=== PATIENT | male | born 1985 | race Caucasian/White ===

== ENCOUNTER 2020-09-11 20:24 | Emergency (ER) | payer OTHER, SELFPAY ==
[2020-09-11 20:37] VITALS: BP 131/77; PULSE 99; RESP 18; TEMP 36.7; O2SAT 96
--- NOTE | 2020-09-11 21:33 | PC.NURSE ---
Patient talknig on the phone with a friend.
[2020-09-11 21:39] LABS: Add Manual Diff / Slide Review NO; Basophils Absolute Auto 100 /uL (0-100); Basophils Percent Auto 1.1 % (0-2); Eosinophils Absolute Auto 100 /uL (0-450); Eosinophils Percent Auto 1.3 % (2-4); Hematocrit 47.7 % (41-53); Hemoglobin 16.1 g/dL (13.5-17.5); Lymphocytes Absolute Auto 2800 /uL (1100-4500); Lymphocytes Percent Auto 42.9 % (25-40); Mean Corpuscular HGB Conc 33.7 % (30-36); Mean Corpuscular Hemoglobin 32.3 PG (26-34); Mean Corpuscular Volume 95.9 fL (80-100); Monocytes Absolute Auto 300 /uL (0-900); Monocytes Percent Auto 5.3 % (3-14); Neutrophils Absolute Auto 3200 /uL (1500-7000); Neutrophils Percent Auto 49.4 % (50-75); Platelet Count 295 X10^3/uL (150-400); Red Blood Cell Count 4.98 X10^6/uL (4.5-5.9); Red Cell Distribution Width 14.2 % (11.6-14.8); White Blood Cell Count 6.5 X10^3/uL (4.5-11.0)
[2020-09-11 22:10] LABS: Acetaminophen < 10 ug/mL (10-30); Alanine Aminotransferase 108 IU/L (<50); Albumin 4.1 g/dL (3.5-5.0); Albumin Globulin Ratio 1.4 (1.0-2.8); Alkaline Phosphatase 82 U/L (38-126); Aspartate Aminotransferase 54 IU/L (17-59); BUN Creatinine Ratio 11.9 (6-22); Bilirubin Total 0.4 mg/dL (0.2-1.3); Blood Urea Nitrogen 12 mg/dL (9-20); Calcium 8.9 mg/dL (8.4-10.2); Carbon Dioxide 23 mmol/L (22-32); Chloride 108 mmol/L (98-107); Estimated Glomerular Filt Rate > 60.0 mL/min (>60); Ethanol (ETOH) 265 mg/dL; Glucose 144 mg/dL (70-100); HEMOLYSIS 41 (0-50); Potassium 4.2 mmol/L (3.4-5.1); Salicylate < 1.0 mg/dL (<20); Sodium 143 mmol/L (137-145); Total Protein 7.1 g/dL (6.3-8.2)
[2020-09-11 22:30] LABS: COVID19 -Nasal RAPID Negative (Negative)
--- NOTE | 2020-09-11 22:30 | PC.NURSE ---
Pt sitting and eating food. Is calm, cooperative. Pt staes he has no plan and after his DUI a couple days ago was having egative thoughts regarding his mistake. Pt states he may have said things he didn't mean.
[2020-09-11 22:39] LABS: Free T4, Direct Thyroxine 0.82 ng/dL (0.78-2.19)
[2020-09-11 22:46] LABS: Ur Creatinine 20 (Normal); Ur Specific Gravity 1.025 (Normal); Urine pH 5 (Normal)
[2020-09-11 22:47] LABS: UR Morphine/Opiate cutoff 300 Negative (Negative); Urine Amphetamines Negative (Negative); Urine Barbiturates Negative (Negative); Urine Benzodiazepines Negative (Negative); Urine Cocaine Negative (Negative); Urine MDMA Negative (Negative); Urine Methadone Negative (Negative); Urine Methamphetamines Negative (Negative); Urine Oxycodone Negative (Negative); Urine Phencyclidine Negative (Negative); Urine Tetrahydrocannabinol Negative (Negative); Urine Tricyclic Antidepressant Negative (Negative)
--- NOTE | 2020-09-11 22:52 | PC.NURSE ---
Patient calmly speaking with a friend on the phone. Seems to be positive conversation.
[2020-09-11 22:53] LABS: Thyroid Stimulating Hormone 1.29 uIU/mL (0.47-4.68)
--- NOTE | 2020-09-11 23:21 | PC.NURSE ---
CONSTRUCTION ASSISTANT note: patient stood up and wandered the space. Asked him what was going on. Suggested to patient maybe to not walk around the ER barefoot. Got him grippy socks. Asked what the plan was. Explained to him that doctor is with other patients, and he will be in as soon as he can be. I suggested playing candy crush or something on his phone while he waits. He told me he plays the [employer] crossword puzzle. Suggested he play that for the time being. Patient back in the bed, on the phone. Watching patient while he talks on phone.
--- NOTE | 2020-09-11 23:58 | PC.NURSE ---
FISHER note: patient is up pacing the room. Wants to know what's going on. I thought this would be more therapeutic. Explained to patient the ER is a busy place, said the best thing is try to get some rest. Offered a snack or drink. Patient refused. Patient watched as other room across the lugo was having a moment. Patient paced the room. Asked for a blanket. Got patient a blanket. Patient laid down for a minute, got up asked for something to sedate him. Tiago MELO and I had a conversation w/ patient. Offered chamomile tea or warm milk. Tiago talked to RN saying patient is requesting a medication. Patient is now in bed resting. One rail is up in bed.
--- NOTE | 2020-09-12 00:07 | ED.PSYCH ---
HPI - Psych <Matthwe Sutton DO - Last Filed: 09/12/20 17:55> General Chief Complaint: Psychiatric Symptoms Stated Complaint: mental health eval Time Seen by Provider: 09/11/20 21:15 Source: patient and family Mode of arrival: Ambulatory History of Present Illness HPI Narrative: Patient is a 35-year-old male who is brought in by family members for evaluation because of alcohol issues and also depression and reported suicidal ideation. The patient is somewhat reluctant to provide any information to myself. It was reported that when he arrived in triage she did not want to stay but was eventually convinced to stay by his family. He was reported that he recently was charged with a DUI. He has had alcohol issues in the past. He is currently intoxicated. Triage nurse states that the patient could not/would not contract for safety stating that if he were to leave he was going to hurt himself. Patient would not provide any specifics to myself regarding this. He does have a history of bipolar type 2. Also has a history of depression. Has been on medications in the past but does not take any medications currently. He has been admitted to the hospital in the past for suicidal ideation. Related Data Allergies Allergy/AdvReac Type Severity Reaction Status Date / Time No Known Drug Allergies Allergy Verified 09/12/20 07:47 Review of Systems <Matthew Sutton DO - Last Filed: 09/12/20 17:55> Constitutional Constitutional: Reports system reviewed and no additional complaints, except as documented Cardiovascular Cardiovascular: Reports system reviewed and no additional complaints, except as documented Respiratory Respiratory: Reports system reviewed and no additional complaints, except as documented Gastrointestinal Gastrointestinal: Reports system reviewed and no additional complaints, except as documented Musculoskeletal Musculoskeletal: Reports system reviewed and no additional complaints, except as documented Psychiatric Psychiatric: Reports as per HPI Hematologic/Lymphatic On Anticoagulants: No Patient History <Matthew Sutton DO - Last Filed: 09/12/20 17:55> Medical History Alcohol abuse Bipolar 2 disorder Social History lives independently: Yes Exam <Matthew Sutton DO - Last Filed: 09/12/20 17:55> Initial Vital Signs Initial Vital Signs: Vital Signs Temperature 98.1 F 09/11/20 20:37 Pulse Rate 99 H 09/11/20 20:37 Respiratory Rate 18 09/11/20 20:37 Blood Pressure 131/77 09/11/20 20:37 Pulse Oximetry 96 09/11/20 20:37 Const General: comfortable HENMT Head: normal to inspection and normocephalic Eyes General: appearance normal, both eyes and all related structures Resp Effort & Inspection: normal respiratory effort Cardio Rate: regular rate Skin General: no rashes or lesions noted Neuro General: patient alert, patient awake, patient oriented x3 and moves all extremities Extrem General: normal to inspection and capillary refill normal Psych Appearance: grossly normal and well kempt Mental Status: mental status grossly normal Speech and Movement: speech and movement normal and restless Mood: labile mood and angry Affect: sad and blunted Attitude: refuses to answer Judgment: poor <To Downey DO - Last Filed: 09/12/20 18:08> Initial Vital Signs Initial Vital Signs: Vital Signs Temperature 98.1 F 09/11/20 20:37 Pulse Rate 99 H 09/11/20 20:37 Respiratory Rate 18 09/11/20 20:37 Blood Pressure 131/77 09/11/20 20:37 Pulse Oximetry 96 09/11/20 20:37 Course <Matthew Sutton DO - Last Filed: 09/12/20 17:55> Orders Ordered: Discontinued Medications Diphenhydramine HCl (Diphenhydramine 25 Mg Tablet) 25 mg PO NOW ONE Stop: 09/12/20 00:43 Last Admin: 09/12/20 00:51 Dose: 25 mg Documented by: ROCKY Lorazepam (Lorazepam 0.5 Mg Tablet) 1 mg PO NOW ONE Stop: 09/12/20 02:02 Last Admin: 09/12/20 02:07 Dose: 1 mg Documented by: ROCKY Lorazepam (Lorazepam 0.5 Mg Tablet) 1 mg PO NOW ONE Stop: 09/12/20 07:43 Last Admin: 09/12/20 07:50 Dose: 1 mg Documented by: YOLANDA Vital Signs Vital signs: Vital Signs - 8 hr 09/12/20 01:50 09/12/20 05:54 Temperature 98.7 F 99.0 F Pulse Rate 90 75 Respiratory Rate 16 18 Blood Pressure 140/86 116/59 L Pulse Oximetry 97 97 <To Downey DO - Last Filed: 09/12/20 18:08> Course Additional Information: Patient received in sign-out from Dr. Sutton. I have performed an independent history and physical exam. The patient is clinically sober and is able to demonstrate capacity to make his own decisions. He is alert and orient, denies any ongoing suicidal or homicidal ideations. He is speaking clearly and can not ambulate with a steady gait. He states he is no longer feeling like it did when he came in and would prefer not to wait on our geriatric social work professor. I gave him multiple options, he understands that we are ready and willing to help get him tied in with support services. He would prefer to leave and is calling his mother for a ride Orders Ordered: Discontinued Medications Diphenhydramine HCl (Diphenhydramine 25 Mg Tablet) 25 mg PO NOW ONE Stop: 09/12/20 00:43 Last Admin: 09/12/20 00:51 Dose: 25 mg Documented by: ROCKY Lorazepam (Lorazepam 0.5 Mg Tablet) 1 mg PO NOW ONE Stop: 09/12/20 02:02 Last Admin: 09/12/20 02:07 Dose: 1 mg Documented by: ROCKY Lorazepam (Lorazepam 0.5 Mg Tablet) 1 mg PO NOW ONE Stop: 09/12/20 07:43 Last Admin: 09/12/20 07:50 Dose: 1 mg Documented by: YOLANDA Vital Signs Vital signs: Vital Signs - 8 hr 09/12/20 01:50 09/12/20 05:54 Temperature 98.7 F 99.0 F Pulse Rate 90 75 Respiratory Rate 16 18 Blood Pressure 140/86 116/59 L Pulse Oximetry 97 97 MDM - Psych <Matthew Sutton DO - Last Filed: 09/12/20 17:55> Lab Data Attestation: I reviewed the patient's lab results. Result diagrams: 09/11/20 21:30 09/11/20 21:30 Labs: Lab Results 09/11/20 09/11/20 09/11/20 Range/Units 21:30 21:30 21:30 WBC 6.5 (4.5-11.0) X10^3/uL RBC 4.98 (4.5-5.9) X10^6/uL Hgb 16.1 (13.5-17.5) g/dL Hct 47.7 (41-53) % MCV 95.9 (80-100) fL MCH 32.3 (26-34) PG MCHC 33.7 (30-36) % RDW 14.2 (11.6-14.8) % Plt Count 295 (150-400) X10^3/uL Neut % (Auto) 49.4 L (50-75) % Lymph % (Auto) 42.9 H (25-40) % [place] % (Auto) 5.3 (3-14) % Eos % (Auto) 1.3 L (2-4) % Baso % (Auto) 1.1 (0-2) % Neut # (Auto) 3200 (4690-5975) /uL Lymph # (Auto) 2800 (2961-1577) /uL [place] # (Auto) 300 (0-900) /uL Eos # (Auto) 100 (0-450) /uL Baso # (Auto) 100 (0-100) /uL Sodium 143 (137-145) mmol/L Potassium 4.2 (3.4-5.1) mmol/L Chloride 108 H (98-107) mmol/L Carbon Dioxide 23 (22-32) mmol/L BUN 12 (9-20) mg/dL Creatinine 1.01 (0.66-1.25) mg/dL Estimated GFR > 60.0 (>60) mL/min BUN/Creatinine Ratio 11.9 (6-22) Glucose 144 H (70-100) mg/dL Calcium 8.9 (8.4-10.2) mg/dL Total Bilirubin 0.4 (0.2-1.3) mg/dL AST 54 (17-59) IU/L ALT 108 H (<50) IU/L Alkaline Phosphatase 82 (38-126) U/L Total Protein 7.1 (6.3-8.2) g/dL Albumin 4.1 (3.5-5.0) g/dL Globulin 3.0 (1.7-4.1) g/dL Albumin/Globulin Ratio 1.4 (1.0-2.8) TSH 1.29 (0.47-4.68) uIU/mL Free T4 0.82 (0.78-2.19) ng/dL Salicylates < 1.0 (<20) mg/dL U Opiates 300ng/mL cut (Negative) Ur Oxycodone Screen (Negative) Urine Methadone Screen (Negative) Acetaminophen < 10 L (10-30) ug/mL Ur Barbiturates Screen (Negative) U Tricyclic Antidepress (Negative) Ur Phencyclidine Scrn (Negative) Ur Amphetamines Screen (Negative) U Methamphetamines Scrn (Negative) Ur MDMA Scrn (Ecstasy) (Negative) U Benzodiazepines Scrn (Negative) Urine Cocaine Screen (Negative) U Marijuana (THC) Screen (Negative) Ethyl Alcohol 265 H ( - 10) mg/dL SARS-CoV-2 (PCR) (Negative) 09/11/20 09/11/20 09/12/20 Range/Units 22:10 22:35 05:50 WBC (4.5-11.0) X10^3/uL RBC (4.5-5.9) X10^6/uL Hgb (13.5-17.5) g/dL Hct (41-53) % MCV (80-100) fL MCH (26-34) PG MCHC (30-36) % RDW (11.6-14.8) % Plt Count (150-400) X10^3/uL Neut % (Auto) (50-75) % Lymph % (Auto) (25-40) % [place]duff[place] % (Auto) (3-14) % Eos % (Auto) (2-4) % Baso % (Auto) (0-2) % Neut # (Auto) (0498-3387) /uL Lymph # (Auto) (8238-3119) /uL [place] # (Auto) (0-900) /uL Eos # (Auto) (0-450) /uL Baso # (Auto) (0-100) /uL Sodium (137-145) mmol/L Potassium (3.4-5.1) mmol/L Chloride (98-107) mmol/L Carbon Dioxide (22-32) mmol/L BUN (9-20) mg/dL Creatinine (0.66-1.25) mg/dL Estimated GFR (>60) mL/min BUN/Creatinine Ratio (6-22) Glucose (70-100) mg/dL Calcium (8.4-10.2) mg/dL Total Bilirubin (0.2-1.3) mg/dL AST (17-59) IU/L ALT (<50) IU/L Alkaline Phosphatase (38-126) U/L Total Protein (6.3-8.2) g/dL Albumin (3.5-5.0) g/dL Globulin (1.7-4.1) g/dL Albumin/Globulin Ratio (1.0-2.8) TSH (0.47-4.68) uIU/mL Free T4 (0.78-2.19) ng/dL Salicylates (<20) mg/dL U Opiates 300ng/mL cut Negative (Negative) Ur Oxycodone Screen Negative (Negative) Urine Methadone Screen Negative (Negative) Acetaminophen (10-30) ug/mL Ur Barbiturates Screen Negative (Negative) U Tricyclic Antidepress Negative (Negative) Ur Phencyclidine Scrn Negative (Negative) Ur Amphetamines Screen Negative (Negative) U Methamphetamines Scrn Negative (Negative) Ur MDMA Scrn (Ecstasy) Negative (Negative) U Benzodiazepines Scrn Negative (Negative) Urine Cocaine Screen Negative (Negative) U Marijuana (THC) Screen Negative (Negative) Ethyl Alcohol 92 H ( - 10) mg/dL SARS-CoV-2 (PCR) Negative (Negative) 09/12/20 Range/Units 08:10 WBC (4.5-11.0) X10^3/uL RBC (4.5-5.9) X10^6/uL Hgb (13.5-17.5) g/dL Hct (41-53) % MCV (80-100) fL MCH (26-34) PG MCHC (30-36) % RDW (11.6-14.8) % Plt Count (150-400) X10^3/uL Neut % (Auto) (50-75) % Lymph % (Auto) (25-40) % [place] % (Auto) (3-14) % Eos % (Auto) (2-4) % Baso % (Auto) (0-2) % Neut # (Auto) (1746-7832) /uL Lymph # (Auto) (3336-1718) /uL [place] # (Auto) (0-900) /uL Eos # (Auto) (0-450) /uL Baso # (Auto) (0-100) /uL Sodium (137-145) mmol/L Potassium (3.4-5.1) mmol/L Chloride (98-107) mmol/L Carbon Dioxide (22-32) mmol/L BUN (9-20) mg/dL Creatinine (0.66-1.25) mg/dL Estimated GFR (>60) mL/min BUN/Creatinine Ratio (6-22) Glucose (70-100) mg/dL Calcium (8.4-10.2) mg/dL Total Bilirubin (0.2-1.3) mg/dL AST (17-59) IU/L ALT (<50) IU/L Alkaline Phosphatase (38-126) U/L Total Protein (6.3-8.2) g/dL Albumin (3.5-5.0) g/dL Globulin (1.7-4.1) g/dL Albumin/Globulin Ratio (1.0-2.8) TSH (0.47-4.68) uIU/mL Free T4 (0.78-2.19) ng/dL Salicylates (<20) mg/dL U Opiates 300ng/mL cut (Negative) Ur Oxycodone Screen (Negative) Urine Methadone Screen (Negative) Acetaminophen (10-30) ug/mL Ur Barbiturates Screen (Negative) U Tricyclic Antidepress (Negative) Ur Phencyclidine Scrn (Negative) Ur Amphetamines Screen (Negative) U Methamphetamines Scrn (Negative) Ur MDMA Scrn (Ecstasy) (Negative) U Benzodiazepines Scrn (Negative) Urine Cocaine Screen (Negative) U Marijuana (THC) Screen (Negative) Ethyl Alcohol 57 H ( - 10) mg/dL SARS-CoV-2 (PCR) (Negative) Urine Dip Bedside Urine Glucose Negative Bedside Urine Bilirubin - Negative Bedside Urine Ketone - Negative Urine Specific [place] 1.025 Bedside Urine Occult Blood - Negative Bedside Urine pH 6.0 Bedside Urine Protein - Negative Bedside Urine Urobilinogen +/- 1mg Bedside Urine Nitrite - Negative Bedside Urine Leukocytes - Negative Esterase MDM Narrative Medical decision making narrative: Patient is very reluctant to provide any information to myself however has made comments to nursing staff that if he were to leave that he would hurt himself. He was intoxicated upon arrival. Was given Ativan for some anxiety issues. There is no other indication of any withdrawal symptoms. Rest of his labs unremarkable. Repeat alcohol shows that he is still above legal limit. Social work consult was placed. Care turned over to day provider to follow up and disposition. <To Downey DO - Last Filed: 09/12/20 18:08> Lab Data Labs: Lab Results 09/11/20 09/11/20 09/11/20 Range/Units 21:30 21:30 21:30 WBC 6.5 (4.5-11.0) X10^3/uL RBC 4.98 (4.5-5.9) X10^6/uL Hgb 16.1 (13.5-17.5) g/dL Hct 47.7 (41-53) % MCV 95.9 (80-100) fL MCH 32.3 (26-34) PG MCHC 33.7 (30-36) % RDW 14.2 (11.6-14.8) % Plt Count 295 (150-400) X10^3/uL Neut % (Auto) 49.4 L (50-75) % Lymph % (Auto) 42.9 H (25-40) % [place] % (Auto) 5.3 (3-14) % Eos % (Auto) 1.3 L (2-4) % Baso % (Auto) 1.1 (0-2) % Neut # (Auto) 3200 (7527-8540) /uL Lymph # (Auto) 2800 (7882-8425) /uL [place] # (Auto) 300 (0-900) /uL Eos # (Auto) 100 (0-450) /uL Baso # (Auto) 100 (0-100) /uL Sodium 143 (137-145) mmol/L Potassium 4.2 (3.4-5.1) mmol/L Chloride 108 H (98-107) mmol/L Carbon Dioxide 23 (22-32) mmol/L BUN 12 (9-20) mg/dL Creatinine 1.01 (0.66-1.25) mg/dL Estimated GFR > 60.0 (>60) mL/min BUN/Creatinine Ratio 11.9 (6-22) Glucose 144 H (70-100) mg/dL Calcium 8.9 (8.4-10.2) mg/dL Total Bilirubin 0.4 (0.2-1.3) mg/dL AST 54 (17-59) IU/L ALT 108 H (<50) IU/L Alkaline Phosphatase 82 (38-126) U/L Total Protein 7.1 (6.3-8.2) g/dL Albumin 4.1 (3.5-5.0) g/dL Globulin 3.0 (1.7-4.1) g/dL Albumin/Globulin Ratio 1.4 (1.0-2.8) TSH 1.29 (0.47-4.68) uIU/mL Free T4 0.82 (0.78-2.19) ng/dL Salicylates < 1.0 (<20) mg/dL U Opiates 300ng/mL cut (Negative) Ur Oxycodone Screen (Negative) Urine Methadone Screen (Negative) Acetaminophen < 10 L (10-30) ug/mL Ur Barbiturates Screen (Negative) U Tricyclic Antidepress (Negative) Ur Phencyclidine Scrn (Negative) Ur Amphetamines Screen (Negative) U Methamphetamines Scrn (Negative) Ur MDMA Scrn (Ecstasy) (Negative) U Benzodiazepines Scrn (Negative) Urine Cocaine Screen (Negative) U Marijuana (THC) Screen (Negative) Ethyl Alcohol 265 H ( - 10) mg/dL SARS-CoV-2 (PCR) (Negative) 09/11/20 09/11/20 09/12/20 Range/Units 22:10 22:35 05:50 WBC (4.5-11.0) X10^3/uL RBC (4.5-5.9) X10^6/uL Hgb (13.5-17.5) g/dL Hct (41-53) % MCV (80-100) fL MCH (26-34) PG MCHC (30-36) % RDW (11.6-14.8) % Plt Count (150-400) X10^3/uL Neut % (Auto) (50-75) % Lymph % (Auto) (25-40) % [place] % (Auto) (3-14) % Eos % (Auto) (2-4) % Baso % (Auto) (0-2) % Neut # (Auto) (8183-0909) /uL Lymph # (Auto) (1213-6364) /uL [place] # (Auto) (0-900) /uL Eos # (Auto) (0-450) /uL Baso # (Auto) (0-100) /uL Sodium (137-145) mmol/L Potassium (3.4-5.1) mmol/L Chloride (98-107) mmol/L Carbon Dioxide (22-32) mmol/L BUN (9-20) mg/dL Creatinine (0.66-1.25) mg/dL Estimated GFR (>60) mL/min BUN/Creatinine Ratio (6-22) Glucose (70-100) mg/dL Calcium (8.4-10.2) mg/dL Total Bilirubin (0.2-1.3) mg/dL AST (17-59) IU/L ALT (<50) IU/L Alkaline Phosphatase (38-126) U/L Total Protein (6.3-8.2) g/dL Albumin (3.5-5.0) g/dL Globulin (1.7-4.1) g/dL Albumin/Globulin Ratio (1.0-2.8) TSH (0.47-4.68) uIU/mL Free T4 (0.78-2.19) ng/dL Salicylates (<20) mg/dL U Opiates 300ng/mL cut Negative (Negative) Ur Oxycodone Screen Negative (Negative) Urine Methadone Screen Negative (Negative) Acetaminophen (10-30) ug/mL Ur Barbiturates Screen Negative (Negative) U Tricyclic Antidepress Negative (Negative) Ur Phencyclidine Scrn Negative (Negative) Ur Amphetamines Screen Negative (Negative) U Methamphetamines Scrn Negative (Negative) Ur MDMA Scrn (Ecstasy) Negative (Negative) U Benzodiazepines Scrn Negative (Negative) Urine Cocaine Screen Negative (Negative) U Marijuana (THC) Screen Negative (Negative) Ethyl Alcohol 92 H ( - 10) mg/dL SARS-CoV-2 (PCR) Negative (Negative) 09/12/20 Range/Units 08:10 WBC (4.5-11.0) X10^3/uL RBC (4.5-5.9) X10^6/uL Hgb (13.5-17.5) g/dL Hct (41-53) % MCV (80-100) fL MCH (26-34) PG MCHC (30-36) % RDW (11.6-14.8) % Plt Count (150-400) X10^3/uL Neut % (Auto) (50-75) % Lymph % (Auto) (25-40) % [place] % (Auto) (3-14) % Eos % (Auto) (2-4) % Baso % (Auto) (0-2) % Neut # (Auto) (3509-0490) /uL Lymph # (Auto) (2315-6743) /uL [place] # (Auto) (0-900) /uL Eos # (Auto) (0-450) /uL Baso # (Auto) (0-100) /uL Sodium (137-145) mmol/L Potassium (3.4-5.1) mmol/L Chloride (98-107) mmol/L Carbon Dioxide (22-32) mmol/L BUN (9-20) mg/dL Creatinine (0.66-1.25) mg/dL Estimated GFR (>60) mL/min BUN/Creatinine Ratio (6-22) Glucose (70-100) mg/dL Calcium (8.4-10.2) mg/dL Total Bilirubin (0.2-1.3) mg/dL AST (17-59) IU/L ALT (<50) IU/L Alkaline Phosphatase (38-126) U/L Total Protein (6.3-8.2) g/dL Albumin (3.5-5.0) g/dL Globulin (1.7-4.1) g/dL Albumin/Globulin Ratio (1.0-2.8) TSH (0.47-4.68) uIU/mL Free T4 (0.78-2.19) ng/dL Salicylates (<20) mg/dL U Opiates 300ng/mL cut (Negative) Ur Oxycodone Screen (Negative) Urine Methadone Screen (Negative) Acetaminophen (10-30) ug/mL Ur Barbiturates Screen (Negative) U Tricyclic Antidepress (Negative) Ur Phencyclidine Scrn (Negative) Ur Amphetamines Screen (Negative) U Methamphetamines Scrn (Negative) Ur MDMA Scrn (Ecstasy) (Negative) U Benzodiazepines Scrn (Negative) Urine Cocaine Screen (Negative) U Marijuana (THC) Screen (Negative) Ethyl Alcohol 57 H ( - 10) mg/dL SARS-CoV-2 (PCR) (Negative) Urine Dip Bedside Urine Glucose Negative Bedside Urine Bilirubin - Negative Bedside Urine Ketone - Negative Urine Specific [place] 1.025 Bedside Urine Occult Blood - Negative Bedside Urine pH 6.0 Bedside Urine Protein - Negative Bedside Urine Urobilinogen +/- 1mg Bedside Urine Nitrite - Negative Bedside Urine Leukocytes - Negative Esterase Discharge Plan Departure Patient Disposition: Home Clinical Impression: Alcohol abuse, Feeling suicidal Depression Qualifiers: Depression Type: unspecified Qualified Code(s): F32.9 - Major depressive disorder, single episode, unspecified Instructions: DI for Suicidal Ideation-Adult Activity Restrictions/Additional Instructions: *You have been diagnosed with [alcohol abuse, depression and suicidal ideation] *What to do: *Please continue to take your regular medications as directed. *Please follow up with your primary care provider as soon as possible, call for an appointment. Let them know you were seen in the Emergency Department and that we ask that you be seen in follow up. We will electronically transmit a record of today's note if your PCP is in our system *If you do not have a primary care provider please contact the [facility] Resource line at [phone]. They will ask some questions about your medical history and help get you set up with a doctor in the community. *Return to Emergency Department if you should have any new, worsening or concerning symptoms, such as [fever greater than 101 F, shaking chills, worsening pain, persistent vomiting or other bothersome symptoms] *If you feel that you are entering into mental health crisis you have multiple options 1. Return to the ER immediately 2. Call the Crisis Line at [phone] 3. Send an anonymous text by sending the word [place] to [phone] 4. Navigate your web browser to [facility] to engage in anonymous chat with a mental health worker Referrals: [facility] Resources [Outside]
--- NOTE | 2020-09-12 00:33 | PC.NURSE ---
STONER HAND note: patient changed out of street clothes and put in paper scrubs. Patient's belongings in bag in cupboard.
[2020-09-12] MEDS: diphenhydrAMINE 25 MG TABLET PO (00:51)
--- NOTE | 2020-09-12 01:37 | PC.NURSE ---
WEB SERVICES PROFESSIONAL note: patient is pacing saying the medication that was given to him isn't helping him sleep. He'd like something else. Patient is pacing around the room while sipping ice water.
[2020-09-12 01:50] VITALS: BP 140/86; PULSE 90; RESP 16; TEMP 37.1; O2SAT 97
--- NOTE | 2020-09-12 02:01 | PC.NURSE ---
Addendum entered by Sandy Basurto CNA 09/12/20 02:40: KAMERON note: patient very unsure of what he should be doing. Expressing that he is very panicking. Patient was pacing the room and said this isn't very therapeutic and I just need to sleep, but my mind keeps racing. I listened to him as he explained what he was feeling. I told him right now the best thing for you to do is sleep. I offered him tea and warm milk. Patient refused both. Patient paced for a bit longer and is now in bed laying on his belly. Original Note: KAMERON note: patient came out of room. Asked what was going on. Patient said he's feeling very panicked. I asked what about. Everything. I fucked up my whole life. I told DEONDRE Kaur. Patient is pacing in room.
[2020-09-12] MEDS: LORazepam 0.5 MG TABLET 1 MG PO ×2 (02:07→07:50)
--- NOTE | 2020-09-12 02:44 | PC.NURSE ---
He was given food and drink one hour ago.
[2020-09-12 05:54] VITALS: BP 116/59; PULSE 75; RESP 18; TEMP 37.2; O2SAT 97
[2020-09-12 06:07] LABS: Ethanol (ETOH) 92 mg/dL
[2020-09-12 08:37] LABS: Ethanol (ETOH) 57 mg/dL
--- NOTE | 2020-09-12 08:44 | PC.NURSE ---
pt is pacing around the room while playing on his phone, pt refused his meal. Pt keep asking when his going to get out, also stating that his panicking. Report to the nurse
[2020-09-12 09:51] VITALS: BP 122/89; PULSE 88; RESP 21; TEMP 37; O2SAT 99
== END 2020-09-12 10:01 | disposition home or self-care (01) ==
PROVIDERS: Emergency Medicine; Emergency Provider Emergency Medicine
DX: F10.129 Alcohol abuse with intoxication, unspecified (principal); R45.851 Suicidal ideations; Y90.8 Blood alcohol level of 240 mg/100 ml or more; F32.9 Major depressive disorder, single episode, unspecified; Z20.822 Contact with and (suspected) exposure to COVID-19
CPT/HCPCS: 36415; 80053; 80305; 80320; 80329; 81003; 84439; 84443; 85025; 87635; 99283; 99284; C9803; G0480

== ENCOUNTER 2024-10-28 17:13 | Emergency (ER) | payer OTHER, SELFPAY ==
[2024-10-28] VITALS (16 sets, daily range): BP systolic 106–116; BP diastolic 57–63; PULSE 92–97; RESP 13–36; TEMP 36.7; O2SAT 92–98; BMI 27.2
--- NOTE | 2024-10-28 17:38 | DI.RAD.S_ITS ---
PROCEDURE: XR CHEST 1V INDICATIONS: suspected sepsis TECHNIQUE: One view of the chest was acquired. COMPARISON: Merged With [facility], CR, XR CHEST 1V, 10/07/2024, 19:27. FINDINGS: Surgical changes and devices: None. Lungs and pleura: Lungs are clear. No pleural effusions or pneumothorax. Mediastinum: Mediastinal contours appear normal. Heart size is normal. Bones and chest wall: No suspicious bony lesions. Overlying soft tissues appear unremarkable. IMPRESSION: No acute cardiopulmonary abnormality is seen. Approved by: Dereck Hernandes M.D. on 10/28/2024 at 17:02
[2024-10-28 17:49] LABS: Add Manual Diff / Slide Review NO; Hematocrit 24.8 % (41-53); Hemoglobin 8.2 g/dL (13.5-17.5); Lymphocytes Absolute Auto 1100 /uL (1100-4500); Mean Corpuscular HGB Conc 33.0 % (30-36); Mean Corpuscular Hemoglobin 27.7 PG (26-34); Mean Corpuscular Volume 84.0 fL (80-100); Platelet Count 461 X10^3/uL (150-400)
[2024-10-28 17:52] LABS: INR 1.3 (0.9-1.3); Prothrombin Time 15.0 SECONDS (9.4-12.5)
[2024-10-28 17:55] LABS: Lactate (Lactic Acid) 1.0 mmol/L (0.7-2.1); PTT Partial Thromboplastin Tim 27 SECONDS (25.1-36.5)
[2024-10-28 17:56] LABS: Alanine Aminotransferase 56 IU/L (<50); Albumin 3.4 g/dL (3.5-5.0); Albumin Globulin Ratio 0.8 (1.0-2.8); Alkaline Phosphatase 125 U/L (38-126); Blood Urea Nitrogen 4 mg/dL (9-20); Calcium 8.8 mg/dL (8.4-10.2); Carbon Dioxide 26 mmol/L (22-32); Chloride 100 mmol/L (98-107); Estimated Glomerular Filt Rate > 60 mL/min (>60); Globulin 4.5 g/dL (1.7-4.1); Glucose 143 mg/dL (70-99); HEMOLYSIS < 15 (0-50); Lipase 21 U/L (23-300); Potassium 3.8 mmol/L (3.4-5.1); Sodium 136 mmol/L (137-145); Total Protein 7.9 g/dL (6.3-8.2)
[2024-10-28 18:13] LABS: Procalcitonin 0.148 ng/mL (<0.5)
--- NOTE | 2024-10-28 18:24 | PC.NURSE ---
Pt has two drains in place to abdomen. Reports that one is not draining at this time. Pt wanting something for pain, Dr Hernandez notified.
--- NOTE | 2024-10-28 18:42 | DI.CT.S_ITS ---
PROCEDURE: CT ABDOMEN PELVIS W CON INDICATIONS: abd pain, pancreatitis draining percutaneously TECHNIQUE: After the administration of intravenous contrast, axial sections acquired from the lung bases to the pubic symphysis. Coronal and sagittal reformats were performed. For radiation dose reduction, the following was used: automated exposure control, adjustment of mA and/or kV according to patient size. COMPARISON: [facility], CT, CT ABDOMEN PELVIS W CON, 10/07/2024, 19:40. FINDINGS: Image quality: Diagnostic Lower chest: Left lower lung opacities, atelectasis and small effusion. Cardiomegaly. Liver: 1 cm lesion in the right lobe anterior capsule, above fluid density. Focal fat adjacent to the falciform ligament. Gallbladder and biliary system: Under distended, nondilated Pancreas: Sequelae of pancreatitis. Cyst gastrostomy. Pancreatic ductal stent. The left abdominal collection is decreased, on coronal image measuring 6.6 x 16.9 cm previously 7.2 x 24.9 cm using similar measurement technique. A percutaneous drain is in place. This extends to the left paracolic gutter and retroperitoneum. This also extends into the pelvis. Internal gas is present. A right retroperitoneal fluid collection is also decreased, percutaneous drain in place. This measures a thickness of 6.4 cm, previously 9.9 cm using similar measurement technique. Internal gas is also present. Spleen: Splenomegaly. Upper pole infarcts, new. Adrenals: No discrete nodules Kidneys: Mild left hydroureteronephrosis. This may be due to partial obstruction in the left retroperitoneal fluid collection. No solid renal mass. Vessels and lymph nodes: The main portal vein appears patent. Splenic venous occlusion with left upper quadrant portal venous collaterals. No abdominal aortic aneurysm. No pathologic lymph nodes by size criteria. Bowel and peritoneum: No bowel obstruction. There is stent material in the right lower quadrant bowel, probably migrated. Moderate to large colonic fecal loading. There is no evidence of a complete bowel obstruction. Body wall: Moderate fat containing umbilical hernia containing congested omentum as well. Pelvis: Bladder is unremarkable. Prostate is unremarkable on limited CT evaluation Bones: No aggressive appearing osseous abnormality. IMPRESSION: Sequelae of pancreatitis with numerous peritoneal retroperitoneal fluid collections. Cyst gastrostomy and multiple percutaneous drains are in place. The fluid collections are slightly decreased compared to prior imaging. Migrated stent material is seen in the right lower quadrant bowel. Pancreatic ductal stent also seen. Moderate to large colonic fecal loading. No bowel obstruction. Mild left hydroureteronephrosis secondary to obstruction at the left retroperitoneal fluid collection. New splenic upper pole small infarcts. Splenomegaly. 1 cm liver anterior capsule lesion is indeterminate. Attention on follow-up CT versus further evaluation with nonurgent MRI. This could represent hemangioma or complicated cyst. Left lower lung opacity and small effusion Multiple other findings above. Dictated by: Richardson Das M.D. on 10/28/2024 at 19:44 Approved by: Richardson Das M.D. on 10/28/2024 at 19:52
--- NOTE | 2024-10-28 20:14 | ED.ABDPAIN ---
HPI - Abdominal Pain General Chief Complaint: Abdominal Pain Stated Complaint: drainage for pancreatitis, poss infection, leaking Time Seen by Provider: 10/28/24 18:42 Source: patient and family Mode of arrival: Family Vehicle History of Present Illness HPI narrative: 39-year-old male complains of drainage to right abdominal catheters that was placed in [facility], pain, feels feverish, has drainage from the ski entrance site. History of alcohol use with last drink 2 months ago, history of hypertriglyceridemia, had diagnosis of pancreatitis about 2 months ago, initially managed in [facility] inpatient where he developed ARF, was on dialysis for 2 weeks and eventually discharged home. Presented with abdominal pain and diarrhea with C diff diagnosis, imaging showed pseudocyst formation the pancreas, necrotic pancreatitis changes, transferred to [facility], reports he had left-sided percutaneous abdominal drain placed at [facility], believes he was hospitalized for 9 days. Discharged home but presented here with 104 fever within 1 or 2 days, transferred back down to [facility], had right-sided anterior abdominal drain, thinks he had an EGD, hospitalized at another 7 days, believes he was discharged a proximally 10 days ago. Saw new PCP in [place] on 10/23/2024, taking same oral vancomycin and oral Augmentin regimen, and went home, awaiting follow-up CT scanning next Wednesday. For the last couple of days he has had fevers, intermittent leakage to the right catheter abdominal wall site, increased drainage and discomfort today. No nausea or vomiting. Has felt feverish intermittently. No longer having diarrhea. Related Data Home Medications ?Medication ?Instructions ?Recorded ?Confirmed amoxicillin 875 mg-potassium 1 tab PO BID 10/07/24 10/07/24 clavulanate 125 mg tablet lorazepam 0.5 mg tablet 1 mg PO BID PRN anxiety 10/07/24 10/07/24 oxycodone 5 mg tablet PO 10/07/24 propranolol 20 mg tablet PO 10/07/24 quetiapine 25 mg tablet 25 mg PO 10/07/24 vancomycin 125 mg capsule 125 mg PO 4XD 10/07/24 10/07/24 Allergies Allergy/AdvReac Type Severity Reaction Status Date / Time lamotrigine (From Lamictal) Allergy Verified 10/28/24 17:30 Patient History Medical History Alcohol abuse Bipolar 2 disorder Social History lives independently: Yes Exam Narrative Exam Narrative: GENERAL: Well-developed patient, in mild distress. HEAD: Atraumatic. Normocephalic. EYES: Pupils equal round and reactive. Extraocular motions intact. No scleral icterus. No injection or drainage. ENT: Nose without bleeding, purulent drainage. Throat without erythema, tonsillar hypertrophy or exudate. Airway patent. NECK: Trachea midline. Non tender CARDIOVASCULAR: Regular rate and rhythm without murmurs, gallops, or rubs. RESPIRATORY: Clear to auscultation. Breath sounds equal bilaterally. No wheezes, rales, or rhonchi. GASTROINTESTINAL: Left mid lateral abdominal catheter and site, no drainage or redness to site. Right lateral mid abdominal catheter site with some erythema, tenderness without crepitance, some expressible pus, wound culture sent. EXTREMITIES: No edema or joint tenderness. BACK: Nontender without deformity or crepitance. No flank tenderness. NEURO: AOx3. Motor functions grossly nonfocal. SKIN: No rash or erythema of visible areas Initial Vital Signs Initial Vital Signs: Vital Signs Temperature 98.0 F 10/28/24 17:16 Pulse Rate 94 H 10/28/24 17:16 Respiratory Rate 16 10/28/24 17:16 Blood Pressure 113/61 10/28/24 17:16 Pulse Oximetry 95 10/28/24 17:16 Oxygen Delivery Method Room Air 10/28/24 17:16 Course Orders Ordered: Discontinued Medications Heparin Sodium (Porcine) (Heparin 5,000 Unit/Ml Vial) 7,500 unit 80 unit/kg (7500 unit) IV NOW ONE Stop: 10/28/24 23:04 Last Admin: 10/28/24 23:54 Dose: 7,500 unit Documented By: ROGER Hydromorphone HCl (Hydromorphone Hcl 0.5 Mg/0.5 Ml Syringe) 0.5 mg IV NOW ONE Stop: 10/28/24 20:46 Last Admin: 10/28/24 21:58 Dose: 0.5 mg Documented By: Hydromorphone HCl (Hydromorphone 1 Mg/Ml Syringe) 0.5 mg IV NOW ONE Stop: 10/28/24 22:42 Last Admin: 10/28/24 22:49 Dose: 0.5 mg Documented By: KETTY Hydromorphone HCl (Hydromorphone 1 Mg/Ml Syringe) 1 mg IV NOW ONE Stop: 10/29/24 00:16 Last Admin: 10/29/24 00:29 Dose: 1 mg Documented By: Piperacillin Sod/Tazobactam (Sod 4.5 gm/ Sodium Chloride) 100 mls @ 200 mls/hr IV NOW ONE Stop: 10/28/24 20:54 Last Infusion: 10/28/24 22:38 Dose: Infused Documented By: Admin: 10/28/24 21:58 Dose: 200 mls/hr Documented By: Vancomycin HCl/Dextrose (Vancomycin) 2,000 mg in 400 mls @ 200 mls/hr IV NOW ONE Stop: 10/28/24 22:59 Last Infusion: 10/29/24 01:35 Dose: Infused Documented By: Admin: 10/28/24 23:40 Dose: 200 mls/hr Documented By: KETTY Heparin Sodium/Dextrose (Heparin Drip) 25,000 unit in 500 mls @ 34.618 mls/hr IV CONT YARA; Protocol Last Admin: 10/28/24 23:52 Dose: 18 units/kg/hr, 34.618 mls/hr Documented By: ROGER Co-signed By: Ondansetron HCl (Ondansetron 4 Mg/2 Ml Inj) 4 mg IV NOW PRN PRN Reason: Nausea And Vomiting Ondansetron HCl (Ondansetron 4 Mg Odt) 4 mg PO NOW PRN PRN Reason: Nausea And Vomiting Ondansetron HCl (Ondansetron 4 Mg/2 Ml Inj) 4 mg IV NOW ONE Stop: 10/28/24 20:46 Last Admin: 10/28/24 21:58 Dose: 4 mg Documented By: Vital Signs Vital signs: Vital Signs - 8 hr 10/28/24 17:16 10/28/24 17:26 10/28/24 17:30 Temperature 98.0 F Pulse Rate 94 H 96 H 94 H Respiratory Rate 16 30 H Blood Pressure 113/61 Pulse Oximetry 95 95 95 Oxygen Delivery Method Room Air 10/28/24 17:30 10/28/24 18:00 10/28/24 18:00 Temperature Pulse Rate 93 H Respiratory Rate 19 Blood Pressure 113/63 106/63 Pulse Oximetry 95 Oxygen Delivery Method Room Air 10/28/24 18:30 10/28/24 18:30 10/28/24 19:00 Temperature Pulse Rate 92 H 92 H Respiratory Rate 36 H 36 H Blood Pressure 110/61 Pulse Oximetry 94 95 Oxygen Delivery Method 10/28/24 19:00 10/28/24 19:30 10/28/24 20:00 Temperature Pulse Rate 96 H 96 H Respiratory Rate 13 26 H Blood Pressure 114/59 L Pulse Oximetry 96 95 Oxygen Delivery Method 10/28/24 20:30 10/28/24 21:00 10/28/24 21:30 Temperature Pulse Rate 96 H 96 H 97 H Respiratory Rate 25 H 14 18 Blood Pressure Pulse Oximetry 98 98 96 Oxygen Delivery Method 10/28/24 22:00 10/28/24 22:06 10/28/24 22:06 Temperature Pulse Rate 96 H 96 H Respiratory Rate 17 16 Blood Pressure 111/62 Pulse Oximetry 96 95 Oxygen Delivery Method Room Air 10/28/24 22:30 10/28/24 22:30 Temperature Pulse Rate 96 H Respiratory Rate 14 Blood Pressure 113/57 L Pulse Oximetry 95 Oxygen Delivery Method Room Air MDM - Abdominal Pain Lab Data Attestation: I reviewed the patient's lab results. Lab results narrative: White blood cell count 9100, hemoglobin 8.2, platelets adequate. Glucose 143. Renal function normal. Serum CO2 26. Sodium 136 slight low, normal potassium. Slight AST elevation, other liver functions normal. Lipase normal. Lactate not elevated. Procalcitonin not elevated. INR 1.3 normal range. Blood cultures requested. Wound culture from purulent right abdominal wall catheter wound site. 10/28/24 23:44 10/28/24 17:35 Labs: Lab Results 10/28/24 10/28/24 10/28/24 Range/Units 17:35 23:44 23:44 WBC 9.1 9.0 (4.5-11.0) X10^3/uL RBC 2.96 L 2.73 L (4.5-5.9) X10^6/uL Hgb 8.2 L 7.5 L (13.5-17.5) g/dL Hct 24.8 L 23.0 L (41-53) % MCV 84.0 84.1 (80-100) fL MCH 27.7 27.6 (26-34) PG MCHC 33.0 32.8 (30-36) % RDW 17.9 H 18.0 H (11.6-14.8) % Plt Count 461 H 409 H (150-400) X10^3/uL Neut % (Auto) 80.8 H 80.7 H (50-75) % Lymph % (Auto) 12.2 L 11.4 L (25-40) % [place] % (Auto) 5.6 6.9 (3-14) % Eos % (Auto) 0.7 L 0.5 L (2-4) % Baso % (Auto) 0.7 0.5 (0-2) % Neut # (Auto) 7400 H 7300 H (5038-9007) /uL Lymph # (Auto) 1100 1000 L (3937-5514) /uL [place] # (Auto) 500 600 (0-900) /uL Eos # (Auto) 100 0 (0-450) /uL Baso # (Auto) 100 0 (0-100) /uL PT 15.0 H 14.8 H (9.4-12.5) SECONDS INR 1.3 1.3 (0.9-1.3) APTT 27 25 L Cancelled (25.1-36.5) SECONDS Sodium 136 L (137-145) mmol/L Potassium 3.8 (3.4-5.1) mmol/L Chloride 100 (98-107) mmol/L Carbon Dioxide 26 (22-32) mmol/L BUN 4 L (9-20) mg/dL Creatinine 0.52 L (0.66-1.25) mg/dL Estimated GFR > 60 (>60) mL/min BUN/Creatinine Ratio 7.7 (6-22) Glucose 143 H (70-99) mg/dL Lactate 1.0 (0.7-2.1) mmol/L Calcium 8.8 (8.4-10.2) mg/dL Total Bilirubin 0.4 (0.2-1.3) mg/dL AST 42 (17-59) IU/L ALT 56 H (<50) IU/L Alkaline Phosphatase 125 (38-126) U/L Total Protein 7.9 (6.3-8.2) g/dL Albumin 3.4 L (3.5-5.0) g/dL Globulin 4.5 H (1.7-4.1) g/dL Albumin/Globulin Ratio 0.8 L (1.0-2.8) Lipase 21 L (23-300) U/L Procalcitonin 0.148 (<0.5) ng/mL Point of care testing: Urine Dip Bedside Urine Glucose Negative Bedside Urine Bilirubin - Negative Bedside Urine Ketone - Negative Urine Specific [place] 1.005 Bedside Urine Occult Blood - Negative Bedside Urine pH 6.0 Bedside Urine Protein - Negative Bedside Urine Urobilinogen - Negative Bedside Urine Nitrite - Negative Bedside Urine Leukocytes - Negative Esterase Imaging Data Chest x-ray: Radiologist's Impression: [address] [id number] XRay Report Signed Patient: Ja Arboleda MR#: [id number] : 1985 Acct:[id number] Age/Sex: 39 / M Date of Service: 10/28/24 Loc: ED Accession Number: [id number] Procedure: XR chest 1V Ordering Provider: Bernadette Chan D.O. PROCEDURE: XR CHEST 1V INDICATIONS: suspected sepsis TECHNIQUE: One view of the chest was acquired. COMPARISON: [facility], , XR CHEST 1V, 10/07/2024, 19:27. FINDINGS: Surgical changes and devices: None. Lungs and pleura: Lungs are clear. No pleural effusions or pneumothorax. Mediastinum: Mediastinal contours appear normal. Heart size is normal. Bones and chest wall: No suspicious bony lesions. Overlying soft tissues appear unremarkable. IMPRESSION: No acute cardiopulmonary abnormality is seen. Approved by: Dereck Hernandes M.D. on 10/28/2024 at 17:02 CT scan - abdomen/pelvis: Radiologist's Impression: [address] [address] [address] Scan Report Signed Patient: Ja Arboleda MR#: [id number] : 1985 Acct:[id number] Age/Sex: 39 / M Date of Service: 10/28/24 Loc: ED Accession Number: [id number] Procedure: CT abdomen pelvis w con Ordering Provider: Judah Hernandez MD PROCEDURE: CT ABDOMEN PELVIS W CON INDICATIONS: abd pain, pancreatitis draining percutaneously TECHNIQUE: After the administration of intravenous contrast, axial sections acquired from the lung bases to the pubic symphysis. Coronal and sagittal reformats were performed. For radiation dose reduction, the following was used: automated exposure control, adjustment of mA and/or kV according to patient size. COMPARISON: [facility], CT, CT ABDOMEN PELVIS W CON, 10/07/2024, 19:40. FINDINGS: Image quality: Diagnostic Lower chest: Left lower lung opacities, atelectasis and small effusion. Cardiomegaly. Liver: 1 cm lesion in the right lobe anterior capsule, above fluid density. Focal fat adjacent to the falciform ligament. Gallbladder and biliary system: Under distended, nondilated Pancreas: Sequelae of pancreatitis. Cyst gastrostomy. Pancreatic ductal stent. The left abdominal collection is decreased, on coronal image measuring 6.6 x 16.9 cm previously 7.2 x 24.9 cm using similar measurement technique. A percutaneous drain is in place. This extends to the left paracolic gutter and retroperitoneum. This also extends into the pelvis. Internal gas is present. A right retroperitoneal fluid collection is also decreased, percutaneous drain in place. This measures a thickness of 6.4 cm, previously 9.9 cm using similar measurement technique. Internal gas is also present. Spleen: Splenomegaly. Upper pole infarcts, new. Adrenals: No discrete nodules Kidneys: Mild left hydroureteronephrosis. This may be due to partial obstruction in the left retroperitoneal fluid collection. No solid renal mass. Vessels and lymph nodes: The main portal vein appears patent. Splenic venous occlusion with left upper quadrant portal venous collaterals. No abdominal aortic aneurysm. No pathologic lymph nodes by size criteria. Bowel and peritoneum: No bowel obstruction. There is stent material in the right lower quadrant bowel, probably migrated. Moderate to large colonic fecal loading. There is no evidence of a complete bowel obstruction. Body wall: Moderate fat containing umbilical hernia containing congested omentum as well. Pelvis: Bladder is unremarkable. Prostate is unremarkable on limited CT evaluation Bones: No aggressive appearing osseous abnormality. IMPRESSION: Sequelae of pancreatitis with numerous peritoneal retroperitoneal fluid collections. Cyst gastrostomy and multiple percutaneous drains are in place. The fluid collections are slightly decreased compared to prior imaging. Migrated stent material is seen in the right lower quadrant bowel. Pancreatic ductal stent also seen. Moderate to large colonic fecal loading. No bowel obstruction. Mild left hydroureteronephrosis secondary to obstruction at the left retroperitoneal fluid collection. New splenic upper pole small infarcts. Splenomegaly. 1 cm liver anterior capsule lesion is indeterminate. Attention on follow-up CT versus further evaluation with nonurgent MRI. This could represent hemangioma or complicated cyst. Left lower lung opacity and small effusion Multiple other findings above. Dictated by: Richardson Das M.D. on 10/28/2024 at 19:44 Approved by: Richardson Das M.D. on 10/28/2024 at 19:52 [facility] Narrative Medical decision making narrative: 39-year-old male with complex abdominal history over the last couple of months, had pancreatitis with development of acute renal failure on dialysis for couple of weeks, subsequent drainage of pseudocyst with left abdominal catheter, discharged home and readmitted with fever and had additional right-sided catheter drain and EGD by patient report at [facility], C diff diagnosis, discharged on oral med regimen vancomycin and Augmentin, saw new PCP Gume Vanessa 10/23/2024, awaiting repeat CT scanning this upcoming Wednesday and some other diagnostic procedure to be done at [facility]. Has right-sided catheter site increasing pain and drainage, purulence expressed at site, wound culture sent. Blood cultures. IV vancomycin, IV Zosyn. Having pain, ran out of oxycodone couple of days ago, would like pain medication, IV Dilaudid/Zofran. Chest x-ray, no acute changes, see radiology report. Lab data: White blood cell count 9100, hemoglobin 8.2, platelets adequate. Glucose 143. Renal function normal. Serum CO2 26. Sodium 136 slight low, normal potassium. Slight AST elevation, other liver functions normal. Lipase normal. Lactate not elevated. Procalcitonin not elevated. INR 1.3 normal range. Blood cultures requested. Wound culture from purulent right abdominal wall catheter wound site sent. CT abdomen and pelvis. IMPRESSION: Sequelae of pancreatitis with numerous peritoneal retroperitoneal fluid collections. Cyst gastrostomy and multiple percutaneous drains are in place. The fluid collections are slightly decreased compared to prior imaging. Migrated stent material is seen in the right lower quadrant bowel. Pancreatic ductal stent also seen. Moderate to large colonic fecal loading. No bowel obstruction. Mild left hydroureteronephrosis secondary to obstruction at the left retroperitoneal fluid collection. New splenic upper pole small infarcts. Splenomegaly. 1 cm liver anterior capsule lesion is indeterminate. Attention on follow-up CT versus further evaluation with nonurgent MRI. This could represent hemangioma or complicated cyst. Left lower lung opacity and small effusion.. See radiology report. Will contact [facility] Major, likely back transfer. Keep NPO. 230, case discussed with hospitalist Dr. Silvestre Major, requests IV heparin for the acute splenic infarct findings, agrees with the antibiotic regimen, accepts for transfer to their facility. IV heparin per VTE bolus then infusion protocol ordered. 0015, patient made aware of accepting physician and transfer arrangements, EMS transport anticipated in 1-1.5 hours. He is still having more pain. Repeat dose IV Dilaudid. Continue NPO n case of procedure on arrival to . [facility] ground EMS transport to [facility]. Keep NPO. Critical Care Time Critical Care Time Critical Care Time: Yes Total Critical Care Time: 35 Attestation: The high probability of a clinically significant, sudden or life threatening deterioration of the [abdominopelvic, gastrointestinal system(s) required my full and direct attention, intervention and personal management. The aggregate critical care time was [35] minutes. This time is in addition to time spent performing reported procedures but includes the following: [x] Data Review and interpretation [x] Patient assessment and monitoring of vital signs [x] Documentation [x] Medication orders and management Discharge Plan Departure Patient Disposition: [facility] Clinical Impression: Pancreatic pseudocyst, Splenic infarct, Abdominal pain, Infection associated with catheter Prescriptions: No Action quetiapine 25 mg tablet 25 mg PO vancomycin 125 mg capsule 125 mg PO 4XD lorazepam 0.5 mg tablet 1 mg PO BID PRN (Reason: anxiety) propranolol 20 mg tablet PO amoxicillin-pot clavulanate 875-125 mg tablet 1 tab PO BID oxycodone 5 mg tablet PO
[2024-10-28] MEDS: PIPERACILLIN/TAZO 4.5 GM in SODIUM CHLORIDE 0.9% 100 ML IV (21:58)
[2024-10-28] MEDS: ONDANSETRON 4 MG/2 ML INJ IV (21:58)
[2024-10-28] MEDS: VANCOMYCIN 2,000 MG/400 ML PIGGYBACK 200 MG IV (23:40)
[2024-10-28] MEDS: HEPARIN DRIP 25,000 UNIT/500 ML IV.SOLN 34.618 UNIT IV (23:52)
[2024-10-28] MEDS: HEPARIN 5,000 UNIT/ML VIAL 7500 UNIT IV (23:54)
[2024-10-28 23:55] LABS: Add Manual Diff / Slide Review NO; Hematocrit 23.0 % (41-53); Hemoglobin 7.5 g/dL (13.5-17.5); Lymphocytes Absolute Auto 1000 /uL (1100-4500); Mean Corpuscular HGB Conc 32.8 % (30-36); Mean Corpuscular Hemoglobin 27.6 PG (26-34); Mean Corpuscular Volume 84.1 fL (80-100); Platelet Count 409 X10^3/uL (150-400)
[2024-10-29] VITALS: BP 113/60; PULSE 95; RESP 18; O2SAT 94
[2024-10-29 00:10] LABS: INR 1.3 (0.9-1.3); Prothrombin Time 14.8 SECONDS (9.4-12.5)
[2024-10-29 00:13] LABS: PTT Partial Thromboplastin Tim 25 SECONDS (25.1-36.5)
[2024-10-29 00:30] VITALS: BP 115/61; PULSE 94; RESP 19; O2SAT 95
[2024-10-29 01:00] VITALS: BP 112/55; PULSE 93; RESP 26; O2SAT 94
[2024-10-29 01:30] VITALS: BP 113/58; PULSE 93; RESP 29; O2SAT 93
== END 2024-10-29 01:53 | disposition short-term general hospital (02) ==
PROVIDERS: Emergency Medicine; Emergency Provider Emergency Medicine
DX: K86.3 Pseudocyst of pancreas (principal); D73.5 Infarction of spleen; R10.9 Unspecified abdominal pain; Z99.2 Dependence on renal dialysis; T85.79XA Infection and inflammatory reaction due to other internal prosthetic devices, implants and grafts, initial encounter
CPT/HCPCS: 36415; 71045; 74177; 80053; 81003; 83605; 83690; 84145; 85025; 85610; 85730; 87040; 87070; 87075; 87077; 87147; 87186; 87205; 96365; 96366; 96367; 96375; 96376; 99284; 99291; J1171; J1644; J2405; J2543; J3375; Q9967

== ENCOUNTER 2024-12-22 01:46 | Emergency (ER) | payer OTHER, MEDICAID, SELFPAY ==
[2024-12-22 01:53] VITALS: BP 125/86; PULSE 93; RESP 16; TEMP 36.7; O2SAT 98; BMI 25.0
--- NOTE | 2024-12-22 02:08 | ED.PSYCH ---
HPI - Psych General Chief Complaint: Psychiatric Symptoms Stated Complaint: Anxious, agitated, needs bipolar medication Time Seen by Provider: 12/22/24 02:06 Source: patient Mode of arrival: Ambulatory History of Present Illness HPI Narrative: Patient is a 39-year-old male history of bipolar presenting today with agitation. He reports that he has been out of the Seroquel for about a week he feels like he is escalating. No thoughts of self-harm or homicidal ideations. He is here with his mother part. He also reports that Ativan is frequently helpful when he is getting like this and needing some anxiety meds. Also needs a new prescription for Seroquel. Related Data Home Medications ?Medication ?Instructions ?Recorded ?Confirmed amoxicillin 875 mg-potassium 1 tab PO BID 10/07/24 10/07/24 clavulanate 125 mg tablet lorazepam 0.5 mg tablet 1 mg PO BID PRN anxiety 10/07/24 10/07/24 oxycodone 5 mg tablet PO 10/07/24 propranolol 20 mg tablet PO 10/07/24 quetiapine 25 mg tablet 25 mg PO 10/07/24 vancomycin 125 mg capsule 125 mg PO 4XD 10/07/24 10/07/24 Previous Rx's ?Medication ?Instructions ?Recorded lorazepam 1 mg tablet 1 mg PO BID PRN anxiety #6 tabs 12/22/24 quetiapine 25 mg tablet 25 mg PO BEDTIME #30 tabs 12/22/24 Allergies Allergy/AdvReac Type Severity Reaction Status Date / Time lamotrigine (From Lamictal) Allergy Verified 10/28/24 17:30 Patient History Medical History Alcohol abuse Bipolar 2 disorder Social History lives independently: Yes Exam Initial Vital Signs Initial Vital Signs: Vital Signs Temperature 98.1 F 12/22/24 01:53 Pulse Rate 93 H 12/22/24 01:53 Respiratory Rate 16 12/22/24 01:53 Blood Pressure 125/86 12/22/24 01:53 Pulse Oximetry 98 12/22/24 01:53 Oxygen Delivery Method Room Air 12/22/24 01:53 GENERAL: Anxious well-, good eye contact appearing CARDIOVASCULAR: peripheral pulses in tact, cap refill <2 sec RESPIRATORY: No respiratory distress, speaks in full sentences without difficulty EXTREMITIES: Normal range of motion, no clubbing or edema. Neurovascularly intact NEUROLOGICAL: Cranial nerves II through XII grossly intact. Normal gait and speech. SKIN: Warm, dry, no petechiae, no rashes or lesions. Course Orders Ordered: Discontinued Medications Lorazepam (Lorazepam 0.5 Mg Tablet) 1 mg PO NOW ONE Stop: 12/22/24 02:30 Last Admin: 12/22/24 02:48 Dose: 1 mg Quetiapine Fumarate (Quetiapine 25 Mg Tablet) 25 mg PO NOW ONE Stop: 12/22/24 02:30 Last Admin: 12/22/24 02:47 Dose: 25 mg Vital Signs Vital signs: Vital Signs - 8 hr 12/22/24 01:53 12/22/24 02:58 Temperature 98.1 F Pulse Rate 93 H 94 H Respiratory Rate 16 15 Blood Pressure 125/86 135/84 Pulse Oximetry 98 96 Oxygen Delivery Method Room Air Room Air MDM - Psych MDM Narrative Medical decision making narrative: Patient 39-year-old male history of bipolar presenting today with anxiety and need for medication. Out of meds for about 1 week. No suicidal or homicidal ideations. Given meds in the ER and prescriptions Discharge Plan Departure Patient Disposition: Home Clinical Impression: Acute anxiety Activity Restrictions/Additional Instructions: *You have been diagnosed with anxiety *What to do: At this time restart your medications this should start to help. For further medication refills especially with lorazepam you will need to talk to your primary care provider *Continue to take medications as directed Seroquel 25 mg at bedtime Lorazepam 1 mg b.i.d. as needed *Follow up with your primary care provider in 2-3 days or call [phone] *Return to ER if you should have increasing anxiety or any new, worsening or concerning symptoms CONTROLLED SUBSTANCE DISCHARGE (Narcotoic/benzodiazepine/Flexeril/Phenergan) 1. You have been prescribed narcotic medications, it does have acetaminophen/Tylenol/paracetamol in it, DO NOT TAKE MORE THAN 4,00mg in 24 hours of Tylenol. TRAMADOL DOES NOT CONTAIN TYLENOL 2. Please understand that we cannot provide further refills of narcotics, benzodiazepines or controlled substances through the ED and her pain management will need to be through your provider. 3. While on these medications you cannot drive or operate heavy machinery. 4. You cannot sign legal documents or perform any duties such as this. 5. As long as you're taking opiate pain medications he should also be taking a stool softener such as Colace, Dulcolax, MiraLAX or prune juice, to help avoid constipation. Prescriptions: New quetiapine 25 mg tablet 25 mg PO BEDTIME Qty: 30 0RF lorazepam 1 mg tablet 1 mg PO BID PRN (Reason: anxiety) Qty: 6 0RF No Action quetiapine 25 mg tablet 25 mg PO vancomycin 125 mg capsule 125 mg PO 4XD lorazepam 0.5 mg tablet 1 mg PO BID PRN (Reason: anxiety) propranolol 20 mg tablet PO amoxicillin-pot clavulanate 875-125 mg tablet 1 tab PO BID oxycodone 5 mg tablet PO Stand Alone Forms: Patient Portal/API
[2024-12-22 02:58] VITALS: BP 135/84; PULSE 94; RESP 15; O2SAT 96
== END 2024-12-22 02:50 | disposition home or self-care (01) ==
PROVIDERS: Emergency Provider Emergency Medicine
DX: F41.9 Anxiety disorder, unspecified (principal)
CPT/HCPCS: 99283

== ENCOUNTER 2024-12-31 20:16 | Emergency (ER) | payer OTHER, SELFPAY ==
[2024-12-31] VITALS (7 sets, daily range): BP systolic 115–122; BP diastolic 63–75; PULSE 74–109; RESP 18–27; TEMP 37.7; O2SAT 94–97; BMI 24.3
--- NOTE | 2024-12-31 20:31 | ED.GENADULT ---
HPI - General Adult General Chief complaint: Fever Stated complaint: fever / weakness Time Seen by Provider: 12/31/24 20:20 Source: patient Mode of arrival: Ambulatory History of Present Illness HPI narrative: 39-year-old male with history of alcohol use, history of hypertriglyceridemia, had previous single episode of pancreatitis with acute renal failure briefly on dialysis treated at [facility] for about 10 days a few months ago, had follow up complete recovery of kidney function, back pain resolved, now having fevers chills and sweats since yesterday, no cough or chest pain, some low back pain like he did with his episode of pancreatitis, no injury trauma new activities. No painful or frequent urination. No exposure to persons with recent GI or respiratory illnesses. No recent exposure to antibiotics. He did have a single nonbloody non black loose stool yesterday. No nausea or vomiting. No headache or neck pain or photophobia symptoms. Denies shortness of breath. Had stopped drinking but had brief intermittent drinking recent weeks, last drink of alcohol 10 days ago. He takes cholesterol related medications but is variably compliant with oral dosing regimen. Related Data Home Medications ?Medication ?Instructions ?Recorded ?Confirmed amoxicillin 875 mg-potassium 1 tab PO BID 10/07/24 10/07/24 clavulanate 125 mg tablet lorazepam 0.5 mg tablet 1 mg PO BID PRN anxiety 10/07/24 10/07/24 oxycodone 5 mg tablet PO 10/07/24 propranolol 20 mg tablet PO 10/07/24 quetiapine 25 mg tablet 25 mg PO 10/07/24 vancomycin 125 mg capsule 125 mg PO 4XD 10/07/24 10/07/24 Previous Rx's ?Medication ?Instructions ?Recorded lorazepam 1 mg tablet 1 mg PO BID PRN anxiety #6 tabs 12/22/24 quetiapine 25 mg tablet 25 mg PO BEDTIME #30 tabs 12/22/24 oxycodone-acetaminophen 5 mg-325 1 tab PO Q6H PRN pain #10 tabs 12/31/24 mg tablet Allergies Allergy/AdvReac Type Severity Reaction Status Date / Time lamotrigine (From Lamictal) Allergy Verified 12/31/24 20:27 Patient History Medical History Alcohol abuse Bipolar 2 disorder Social History lives independently: Yes Smoking Status: Former smoker Smoking Status: Former smoker Exam Narrative Exam Narrative: GENERAL: Well-developed patient, in mild distress. HEAD: Atraumatic. Normocephalic. EYES: Pupils equal round and reactive. Extraocular motions intact. No scleral icterus. No injection or drainage. ENT: Nose without bleeding, purulent drainage. Throat without erythema, tonsillar hypertrophy or exudate. Airway patent. NECK: Trachea midline. Non tender CARDIOVASCULAR: Regular rate and rhythm without murmurs, gallops, or rubs. RESPIRATORY: Clear to auscultation. Breath sounds equal bilaterally. No wheezes, rales, or rhonchi. GASTROINTESTINAL: Abdomen soft, non-tender, nondistended. EXTREMITIES: No edema or joint tenderness. BACK: Nontender without deformity or crepitance. No flank tenderness. NEURO: AOx3. Motor functions grossly nonfocal. SKIN: No rash or erythema of visible areas Initial Vital Signs Initial Vital Signs: Vital Signs Pulse Rate 109 H 12/31/24 20:25 Blood Pressure 120/75 12/31/24 20:25 Pulse Oximetry 96 12/31/24 20:25 Course Orders Ordered: ED Orders 12/31/24 20:32 Complete Blood Count AUTO DIFF Stat Comprehensive Metabolic Panel Stat Ethanol (ETOH) Stat Lactate (Lactic Acid) Stat Lipase Stat 12/31/24 20:48 Chest [XR chest 1V] Stat 12/31/24 20:55 Covid-19 + FLU A/B + RSV - PCR Stat 12/31/24 22:10 CT abdomen pelvis w con Stat Discontinued Medications Hydromorphone HCl (Hydromorphone Hcl 0.5 Mg/0.5 Ml Syringe) 0.5 mg IV NOW ONE Stop: 12/31/24 20:52 Last Admin: 12/31/24 21:04 Dose: 0.5 mg Documented By: NICK Sodium Chloride (Normal Saline 0.9%) 1,000 mls @ 1,000 mls/hr IV BOLUS ONE Stop: 12/31/24 21:35 Last Infusion: 12/31/24 21:44 Dose: Infused Documented By: Admin: 12/31/24 20:51 Dose: 1,000 mls/hr Documented By: C Ketorolac Tromethamine (Ketorolac 30 Mg/Ml Vial) 15 mg IV NOW ONE Stop: 12/31/24 22:13 Last Admin: 12/31/24 22:36 Dose: 15 mg Documented By: RLC Ondansetron HCl (Ondansetron 4 Mg/2 Ml Inj) 4 mg IV NOW ONE Stop: 12/31/24 20:52 Last Admin: 12/31/24 21:04 Dose: 4 mg Documented By: RLAleksandar Oxycodone/Acetaminophen (Oxycodone/Apap 5/325 Prepack) 1 bottle MISC DIRECTED ONE Stop: 12/31/24 23:35 Last Admin: 12/31/24 23:48 Dose: 1 bottle Oxycodone/Acetaminophen (Oxycodone/Acetaminophen 5/325 Tablet) 1 tab PO NOW ONE Stop: 12/31/24 23:35 Last Admin: 12/31/24 23:48 Dose: 1 tab Vital Signs Vital signs: Vital Signs - 8 hr 12/31/24 20:25 12/31/24 20:25 12/31/24 20:27 Temperature 99.9 F H Pulse Rate 109 H 103 H Respiratory Rate 18 Blood Pressure 120/75 120/75 Pulse Oximetry 96 95 Oxygen Delivery Method Room Air 12/31/24 20:30 12/31/24 20:30 12/31/24 21:00 Temperature Pulse Rate 106 H 95 H Respiratory Rate 18 23 Blood Pressure 115/72 Pulse Oximetry 94 94 Oxygen Delivery Method Room Air 12/31/24 21:00 12/31/24 21:30 12/31/24 21:30 Temperature Pulse Rate 90 Respiratory Rate 18 Blood Pressure 118/66 117/63 Pulse Oximetry 94 Oxygen Delivery Method 12/31/24 23:00 12/31/24 23:00 12/31/24 23:30 Temperature Pulse Rate 74 77 Respiratory Rate 27 H 27 H Blood Pressure 117/65 Pulse Oximetry 96 97 Oxygen Delivery Method Room Air Room Air 12/31/24 23:30 Temperature Pulse Rate Respiratory Rate Blood Pressure 122/67 Pulse Oximetry Oxygen Delivery Method Medical Decision Making Lab Data Lab results reviewed: Yes I reviewed the patient's lab results. Lab results narrative: White blood cell count 3600, hemoglobin 12.5, platelets adequate. Glucose 178. Renal function unremarkable, normal serum CO2, normal potassium. Sodium 136 slight low. Liver functions and lipase normal. Ethanol level unmeasurable. Urinalysis ordered, none collected. COVID/flu negative. 12/31/24 20:32 12/31/24 20:32 Labs: Lab Results 12/31/24 12/31/24 Range/Units 20:32 20:55 WBC 3.6 L (4.5-11.0) X10^3/uL RBC 4.09 L (4.5-5.9) X10^6/uL Hgb 12.5 L (13.5-17.5) g/dL Hct 37.0 L (41-53) % MCV 90.6 (80-100) fL MCH 30.5 (26-34) PG MCHC 33.7 (30-36) % RDW 17.0 H (11.6-14.8) % Plt Count 134 L (150-400) X10^3/uL Neut % (Auto) 71.5 (50-75) % Lymph % (Auto) 15.1 L (25-40) % [place] % (Auto) 12.8 (3-14) % Eos % (Auto) 0.1 L (2-4) % Baso % (Auto) 0.5 (0-2) % Neut # (Auto) 2600 (7072-9170) /uL Lymph # (Auto) 500 L (1619-6554) /uL [place] # (Auto) 500 (0-900) /uL Eos # (Auto) 0 (0-450) /uL Baso # (Auto) 0 (0-100) /uL Sodium 136 L (137-145) mmol/L Potassium 3.6 (3.4-5.1) mmol/L Chloride 103 (98-107) mmol/L Carbon Dioxide 23 (22-32) mmol/L BUN 7 L (9-20) mg/dL Creatinine 0.70 (0.66-1.25) mg/dL Estimated GFR > 60 (>60) mL/min BUN/Creatinine Ratio 10.0 (6-22) Glucose 178 H (70-99) mg/dL Lactate 0.9 (0.7-2.1) mmol/L Calcium 9.0 (8.4-10.2) mg/dL Total Bilirubin 0.5 (0.2-1.3) mg/dL AST 26 (17-59) IU/L ALT 16 (<50) IU/L Alkaline Phosphatase 65 (38-126) U/L Total Protein 7.8 (6.3-8.2) g/dL Albumin 4.2 (3.5-5.0) g/dL Globulin 3.6 (1.7-4.1) g/dL Albumin/Globulin Ratio 1.2 (1.0-2.8) Lipase 29 (23-300) U/L Ethyl Alcohol < 10 (<10) mg/dL SARS-CoV-2 (PCR) Negative (Negative) Influenza A (RT-PCR) Flu a negative (NEGATIVE) Influenza B (RT-PCR) Flu b negative (NEGATIVE) RSV (PCR) Negative (Negative) Imaging Data Chest x-ray: Radiologist's Impression: [address] [address] XRay Report Signed Patient: Ja Arboleda MR#: [id number] : 1985 Acct:[id number] Age/Sex: 39 / M Date of Service: 12/31/24 Loc: ED Accession Number: [id number] Procedure: XR chest 1V Ordering Provider: Judah Hernandez MD PROCEDURE: XR CHEST 1V INDICATIONS: sweats, back pain TECHNIQUE: One view of the chest was acquired. COMPARISON: [facility], , XR CHEST 1V, 10/28/2024, 17:41. FINDINGS: Surgical changes and devices: None. Lungs and pleura: Lungs are clear. No pleural effusions or pneumothorax. Mediastinum: Mediastinal contours appear normal. Heart size is normal. Bones and chest wall: No suspicious bony lesions. Overlying soft tissues appear unremarkable. IMPRESSION: No acute pulmonary process. Dictated by: Svetlana Orozco M.D. on 12/31/2024 at 21:25 Approved by: Svetlana Orozco M.D. on 12/31/2024 at 21:25 CT scan - abdomen/pelvis: Radiologist's Impression: [address] [address] [address] Scan Report Signed Patient: Ja Arboleda MR#: [id number] : 1985 Acct:[id number] Age/Sex: 39 / M Date of Service: 12/31/24 Loc: ED Accession Number: [id number] Procedure: CT abdomen pelvis w con Ordering Provider: Judah Hernandez MD PROCEDURE: CT ABDOMEN PELVIS W CON INDICATIONS: back pain, hx pancreatitis TECHNIQUE: After the administration of intravenous contrast, axial sections acquired from the lung bases to the pubic symphysis. Coronal and sagittal reformats were performed. For radiation dose reduction, the following was used: automated exposure control, adjustment of mA and/or kV according to patient size. COMPARISON: [facility], CT, CT ABDOMEN PELVIS W CON, 10/28/2024, 19:11. FINDINGS: Image quality: Diagnostic. Lower Chest: No significant findings. ABDOMEN: Liver: Unchanged anterior right hepatic low-attenuation focus. Gallbladder: No radiopaque gallstones or wall thickening. Biliary ducts: No biliary dilation. Pancreas: No ductal dilation. There is pancreatic inflammatory change in peripancreatic fluid. No organized fluid collection. Is overall markedly improved compared to prior exam. Spleen: Spleen measures 15.3 cm. Persistent although improved appearance of low-attenuation within the superior aspect distally and possibly related to prior infarcts. Adrenal Glands: No adrenal nodules. Kidneys and Ureters: Slight prominence of the left renal collecting system as well as ureter slightly decreased compared to prior exam. Stomach and Bowel: Normal colonic caliber, without significant wall thickening. Gastrostomy postsurgical changes are present. Colonic diverticula without inflammatory change. Peritoneum: No abnormal intraperitoneal fluid. No free air. Previously identified lower abdominal and pelvic fluid collections have resolved. Ventral Wall: Fat containing ventral hernia. Abdominal Nodes: No retroperitoneal or mesenteric adenopathy by size criteria. Vessels: Aorta and inferior vena cava are normal in size. Multiple upper abdominal venous collaterals suggestive of splenic vein occlusion. PELVIS: Pelvic Organs: Unremarkable. Bladder: No bladder wall thickening, accounting for underdistention. Pelvic Nodes: No enlarged lymph nodes. Miscellaneous: No inguinal hernias are seen. Bones: No aggressive osseous abnormality. IMPRESSION: Pancreatic inflammatory changes decreased compared to prior exam. No appearance of necrotizing pancreatitis. No organized fluid collections. Previously identified abdominal pelvic fluid collections have resolved. Areas of low attenuation within the spleen suggestive of splenic infarcts are present although less prominent. Indeterminate 1 cm anterior right hepatic capsule lesion. As previously identified, further evaluation with nonemergent liver MR may be obtained. Dictated by: Svetlana Orozco M.D. on 12/31/2024 at 23:03 Approved by: Svetlana Orozco M.D. on 12/31/2024 at 23:08 [facility] Narrative Medical decision making narrative: 39-year-old male with nontraumatic low back pain, similar sensation to his previous episode of pancreatitis earlier this year, which was severe and associated with drainage procedures managed in [facility], had about 1-1/2 weeks of hemodialysis, with the neck catheter removed, resolution of symptoms. Previous hypertriglyceridemia, previous alcohol use. Had started drinking occasional alcohol, last drink 10 days ago. Variably compliant with anticholesterol medications. No injury or trauma. Afebrile, sirs screen negative. No anterior abdominal tenderness or distention. Has low back pain similar to previous pancreatitis event. Labs pending. IV Dilaudid/Zofran, after requests for pain medication. Chest x-ray no acute changes. See radiology report. Lab data: White blood cell count 3600, hemoglobin 12.5, platelets adequate. Glucose 178. Renal function unremarkable, normal serum CO2, normal potassium. Sodium 136 slight low. Liver functions and lipase normal. Ethanol level unmeasurable. Urinalysis ordered, none collected. COVID/flu negative. CT abdomen and pelvis. IMPRESSION: Pancreatic inflammatory changes decreased compared to prior exam. No appearance of necrotizing pancreatitis. No organized fluid collections.Previously identified abdominal pelvic fluid collections have resolved. Areas of low attenuation within the spleen suggestive of splenic infarcts are present although less prominent. Indeterminate 1 cm anterior right hepatic capsule lesion. As previously identified, further evaluation with nonemergent liver MR may be obtained. See radiology report. In text portion splenic lesion seems improved from previous, not suggestive of a new lesion/infarct. CT report reviewed with patient, pointing out improvement from prior study but presence of inflammatory changes of the pancreas. He has been drinking alcohol as recently as 10 days ago, and variably compliant with anti cholesterol medications. Encouraged to stop drinking. Encouraged to take anticholesterol anti hyper triglyceridemia medications as prescribed. Trial for now of outpatient treatment. Advised to avoid fatty food, alcohol. Oral dose oxycodone/acetaminophen, home pack dispensed, prescription 10 tablets sent to his requested pharmacy. Home with mother. Advised follow up with PCP later this mid week. Return precautions discussed. Discharge Plan Departure Patient Disposition: Home Clinical Impression: Pancreatitis, Low back pain, Lesion of spleen, Lesion of liver Activity Restrictions/Additional Instructions: History of pancreatitis and kidney failure managed with transient hemodialysis at [facility] in [place] earlier this year. History of hypertriglyceridemia, history of alcohol use. Low back pain discomfort without known trauma, similar sensation to prior pancreatitis episode. Slight low white blood cell count was not elevated, hemoglobin unremarkable, liver tests normal, lipase test normal. Persisting pain despite IV pain medications. CT abdomen and pelvis imaging was therefore performed, which did show mild inflammation of the pancreas without any drainable fluid collection markedly improved from previous reported imaging comparison study October 2024, old appearing splenic lesion that seemed improved, again mentioned a small 1 cm liver lesion of unclear significance. Outpatient MRI imaging of the abdomen liver protocol advised for further characterization of the very small liver lesion. You had been drinking alcohol again but not for the last week and a half. You had been taking anticholesterol medications but some missed doses. Advised to avoid alcohol and to be compliant with your anticholesterol medications, which can contribute to pancreatitis. Trial for now of outpatient treatment with pain medications. Avoid fatty foods for now. Recheck symptoms with your regular doctor this next 2-3 days mid week. Return to this/nearest emergency department for any change worsening symptoms or any concerns prior. Prescriptions: New oxycodone-acetaminophen 5-325 mg tablet 1 tab PO Q6H PRN (Reason: pain) Qty: 10 0RF No Action quetiapine 25 mg tablet 25 mg PO vancomycin 125 mg capsule 125 mg PO 4XD lorazepam 0.5 mg tablet 1 mg PO BID PRN (Reason: anxiety) propranolol 20 mg tablet PO amoxicillin-pot clavulanate 875-125 mg tablet 1 tab PO BID oxycodone 5 mg tablet PO quetiapine 25 mg tablet 25 mg PO BEDTIME Qty: 30 0RF lorazepam 1 mg tablet 1 mg PO BID PRN (Reason: anxiety) Qty: 6 0RF Referrals: Nj Cameron MD [Primary Care Provider, Internal Medicine] Stand Alone Forms: Patient Portal/API
[2024-12-31 20:45] LABS: Add Manual Diff / Slide Review NO; Hematocrit 37.0 % (41-53); Hemoglobin 12.5 g/dL (13.5-17.5); Lymphocytes Absolute Auto 500 /uL (1100-4500); Mean Corpuscular HGB Conc 33.7 % (30-36); Mean Corpuscular Hemoglobin 30.5 PG (26-34); Mean Corpuscular Volume 90.6 fL (80-100); Platelet Count 134 X10^3/uL (150-400)
--- NOTE | 2024-12-31 20:48 | DI.RAD.S_ITS ---
PROCEDURE: XR CHEST 1V INDICATIONS: sweats, back pain TECHNIQUE: One view of the chest was acquired. COMPARISON: [facility], CR, XR CHEST 1V, 10/28/2024, 17:41. FINDINGS: Surgical changes and devices: None. Lungs and pleura: Lungs are clear. No pleural effusions or pneumothorax. Mediastinum: Mediastinal contours appear normal. Heart size is normal. Bones and chest wall: No suspicious bony lesions. Overlying soft tissues appear unremarkable. IMPRESSION: No acute pulmonary process. Dictated by: Svetlana Orozco M.D. on 12/31/2024 at 21:25 Approved by: Svetlana Orozco M.D. on 12/31/2024 at 21:25
[2024-12-31] MEDS: SODIUM CHLORIDE 0.9% 1,000 ML 1000 ML IV (20:51)
[2024-12-31 20:53] LABS: Lactate (Lactic Acid) 0.9 mmol/L (0.7-2.1)
[2024-12-31 20:54] LABS: Alanine Aminotransferase 16 IU/L (<50); Albumin 4.2 g/dL (3.5-5.0); Albumin Globulin Ratio 1.2 (1.0-2.8); Alkaline Phosphatase 65 U/L (38-126); Blood Urea Nitrogen 7 mg/dL (9-20); Calcium 9.0 mg/dL (8.4-10.2); Carbon Dioxide 23 mmol/L (22-32); Chloride 103 mmol/L (98-107); Estimated Glomerular Filt Rate > 60 mL/min (>60); Globulin 3.6 g/dL (1.7-4.1); Glucose 178 mg/dL (70-99); HEMOLYSIS < 15 (0-50); Lipase 29 U/L (23-300); Potassium 3.6 mmol/L (3.4-5.1); Sodium 136 mmol/L (137-145); Total Protein 7.8 g/dL (6.3-8.2)
[2024-12-31] MEDS: ONDANSETRON 4 MG/2 ML INJ IV (21:04)
[2024-12-31 21:05] LABS: Ethanol (ETOH) < 10 mg/dL (<10)
[2024-12-31 21:37] LABS: Influenza A - CEPHEID Flu A NEGATIVE (NEGATIVE); Influenza B - CEPHEID Flu B NEGATIVE (NEGATIVE)
[2024-12-31 21:54] LABS: COVID-19 CEPHEID 4-PLEX PCR Negative (Negative)
--- NOTE | 2024-12-31 22:10 | DI.CT.S_ITS ---
PROCEDURE: CT ABDOMEN PELVIS W CON INDICATIONS: back pain, hx pancreatitis TECHNIQUE: After the administration of intravenous contrast, axial sections acquired from the lung bases to the pubic symphysis. Coronal and sagittal reformats were performed. For radiation dose reduction, the following was used: automated exposure control, adjustment of mA and/or kV according to patient size. COMPARISON: [facility], CT, CT ABDOMEN PELVIS W CON, 10/28/2024, 19:11. FINDINGS: Image quality: Diagnostic. Lower Chest: No significant findings. ABDOMEN: Liver: Unchanged anterior right hepatic low-attenuation focus. Gallbladder: No radiopaque gallstones or wall thickening. Biliary ducts: No biliary dilation. Pancreas: No ductal dilation. There is pancreatic inflammatory change in peripancreatic fluid. No organized fluid collection. Is overall markedly improved compared to prior exam. Spleen: Spleen measures 15.3 cm. Persistent although improved appearance of low-attenuation within the superior aspect distally and possibly related to prior infarcts. Adrenal Glands: No adrenal nodules. Kidneys and Ureters: Slight prominence of the left renal collecting system as well as ureter slightly decreased compared to prior exam. Stomach and Bowel: Normal colonic caliber, without significant wall thickening. Gastrostomy postsurgical changes are present. Colonic diverticula without inflammatory change. Peritoneum: No abnormal intraperitoneal fluid. No free air. Previously identified lower abdominal and pelvic fluid collections have resolved. Ventral Wall: Fat containing ventral hernia. Abdominal Nodes: No retroperitoneal or mesenteric adenopathy by size criteria. Vessels: Aorta and inferior vena cava are normal in size. Multiple upper abdominal venous collaterals suggestive of splenic vein occlusion. PELVIS: Pelvic Organs: Unremarkable. Bladder: No bladder wall thickening, accounting for underdistention. Pelvic Nodes: No enlarged lymph nodes. Miscellaneous: No inguinal hernias are seen. Bones: No aggressive osseous abnormality. IMPRESSION: Pancreatic inflammatory changes decreased compared to prior exam. No appearance of necrotizing pancreatitis. No organized fluid collections. Previously identified abdominal pelvic fluid collections have resolved. Areas of low attenuation within the spleen suggestive of splenic infarcts are present although less prominent. Indeterminate 1 cm anterior right hepatic capsule lesion. As previously identified, further evaluation with nonemergent liver MR may be obtained. Dictated by: Svetlana Orozco M.D. on 12/31/2024 at 23:03 Approved by: Svetlana Orozco M.D. on 12/31/2024 at 23:08
[2024-12-31] MEDS: KETOROLAC 30 MG/ML VIAL 15 MG IV (22:36)
--- NOTE | 2024-12-31 23:51 | PC.NURSE ---
Pt ambulatory to restroom without difficulty or assistance
== END 2025-01-01 | disposition home or self-care (01) ==
PROVIDERS: Emergency Provider Emergency Medicine; PCP Student in an Organized Health Care Education/Training Program
DX: K85.90 Acute pancreatitis without necrosis or infection, unspecified (principal); M54.50 Low back pain, unspecified; D73.89 Other diseases of spleen; K76.9 Liver disease, unspecified
CPT/HCPCS: 71045; 74177; 80053; 80320; 83605; 83690; 85025; 87637; 99284; J1171; J1885; J2405; J7030; Q9967

== ENCOUNTER 2025-01-03 13:45 | Inpatient (IN) | payer OTHER, SELFPAY ==
[2025-01-03] VITALS (16 sets, daily range): BP systolic 100–136; BP diastolic 55–75; PULSE 87–104; RESP 16–28; TEMP 36.9–39.8; O2SAT 93–98; BMI 25.8
--- NOTE | 2025-01-03 14:00 | DI.RAD.S_ITS ---
PROCEDURE: XR CHEST 1V INDICATIONS: suspected sepsis TECHNIQUE: One view of the chest was acquired. COMPARISON: [facility], CR, XR CHEST 1V, 12/31/2024, 20:47. FINDINGS: Surgical changes and devices: None. Lungs and pleura: Consolidation in the right upper lobe suprahilar region. No pneumothorax or pleural effusion. Mediastinum: Mediastinal contours appear normal. Heart size is normal. Bones and chest wall: No suspicious bony lesions. Overlying soft tissues appear unremarkable. IMPRESSION: Right upper lobe consolidation concerning for pneumonia. Follow-up to resolution recommended to exclude underlying mass. Dictated by: Dank Rich M.D. on 01/03/2025 at 14:56 Approved by: Dank Rich M.D. on 01/03/2025 at 14:57
--- NOTE | 2025-01-03 14:05 | EKG_ITS ---
[address] [address] Test Date: 2025-01-03 Pat Name: Ja Arboleda Department: Room: Gender: Male [employer]: JEFF : 1985 Requested By: Order Number: [id number] Reading MD: Chito Alvarez Measurements Intervals [place] Rate: 99 P: 71 SD: 128 QRS: -13 QRSD: 96 T: 41 QT: 386 QTc: 495 Interpretive Statements Normal sinus rhythm Nonspecific ST abnormality Prolonged QT Electronically Signed On 01-03-2025 15:02:13 PST by Chito Alvarez
[2025-01-03 14:41] LABS: INR 1.1 (0.9-1.3); Prothrombin Time 12.5 SECONDS (9.4-12.5)
[2025-01-03 14:42] LABS: Add Manual Diff / Slide Review NO; Hematocrit 35.5 % (41-53); Hemoglobin 12.0 g/dL (13.5-17.5); Lymphocytes Absolute Auto 400 /uL (1100-4500); Mean Corpuscular HGB Conc 33.7 % (30-36); Mean Corpuscular Hemoglobin 30.5 PG (26-34); Mean Corpuscular Volume 90.7 fL (80-100); Platelet Count 155 X10^3/uL (150-400)
[2025-01-03 14:43] LABS: PTT Partial Thromboplastin Tim 31 SECONDS (25.1-36.5)
[2025-01-03] MEDS: SODIUM CHLORIDE 0.9% 1,000 ML 1000 ML IV (14:44)
[2025-01-03 14:48] LABS: Alanine Aminotransferase 19 IU/L (<50); Albumin 4.1 g/dL (3.5-5.0); Albumin Globulin Ratio 1.1 (1.0-2.8); Alkaline Phosphatase 59 U/L (38-126); Blood Urea Nitrogen 8 mg/dL (9-20); Calcium 9.2 mg/dL (8.4-10.2); Carbon Dioxide 22 mmol/L (22-32); Chloride 102 mmol/L (98-107); Estimated Glomerular Filt Rate > 60 mL/min (>60); Globulin 3.6 g/dL (1.7-4.1); Glucose 110 mg/dL (70-99); HEMOLYSIS < 15 (0-50); Lactate (Lactic Acid) 0.9 mmol/L (0.7-2.1); Lipase 21 U/L (23-300); Potassium 3.7 mmol/L (3.4-5.1); Sodium 137 mmol/L (137-145); Total Protein 7.7 g/dL (6.3-8.2)
--- NOTE | 2025-01-03 14:50 | ED.SEPSIS ---
HPI - Sepsis <Renée Hernandez PA-C - Last Filed: 01/03/25 19:30> General Chief Complaint: Fever Evaluation Sepsis Screen: Meets SIRS Criteria Sepsis Infection Criteria Present: None Sepsis Onset Time: 14:53 Narrative: Mr. Arboleda is a pleasant 39-year-old male with a past medical history of bipolar disorder, hypertriglyceridemia, pancreatitis with the acute renal failure brief dialysis, alcohol use who presents to the emergency department for persistent fever x4 days. He was in the emergency department on 12/31/2024 for these symptoms. Patient states since being discharged he unfortunately has had continued and worsening of his symptoms which primarily are uncontrolled fever despite taking ibuprofen and Tylenol, sweating, generalized weakness, fatigue and worsening of his chronic midline low back pain. Patient states he has suffered with midline low back pain ever since having pancreatitis requiring a drain in August of this year. He denies any new injury to the low back, no history of IV drug use. Patient denies any abdominal pain, nausea, vomiting, diarrhea, constipation, dysuria, chest pain, shortness of breath, sore throat, ear pain, sinus congestion or coughing. However his mom with a bedside does report she has noticed him coughing more often than usual. He last took ibuprofen about 2 hours prior to arrival, last dose of Tylenol was 10:00 a.m. this morning. Denies illicit drug use, smoking or alcohol. Of note patient states that he does take Seroquel and trazodone for his bipolar disorder, about 1.5 weeks ago his Seroquel was increased and the trazodone was initiated. He also takes propranolol and oxycodone. Review of Systems <Renée Hernandez PA-C - Last Filed: 01/03/25 19:30> Review of Systems ROS Unobtainable: All systems reviewed & are unremarkable except as noted in HPI and below Patient History <Renée Hernandez PA-C - Last Filed: 01/03/25 19:30> Medical History Alcohol abuse Bipolar 2 disorder Social History household members: family lives independently: Yes Smoking Status: Never smoker alcohol intake: former Exam <Renée Hernandez PA-C - Last Filed: 01/03/25 19:30> Narrative Exam Narrative: GENERAL: 39 year old patient appears stated age. Well-developed patient, in no acute distress. HEAD: Atraumatic. Normocephalic. EYES: PERRL. Extraocular motions intact. No scleral icterus. No injection or drainage. ENT: Nose without bleeding, purulent drainage. Throat without erythema, tonsillar hypertrophy or exudate. Uvula midline. Airway patent. NECK: Trachea midline. Cervical ROM intact. No neck tenderness, no meningismus. CARDIOVASCULAR: Increased rate and regular rhythm. RESPIRATORY: ?Nonlabored respirations. ?Speaking in clear, full sentences. ?Clear to auscultation. Breath sounds equal bilaterally. No wheezes, rales, or rhonchi. ? GASTROINTESTINAL: Abdomen soft, non-tender, nondistended. Bowel sounds present. Prior surgical scars from pancreatic drain. EXTREMITIES: No LE edema. Cap refill on fingers 2-3 seconds. BACK: Patient does have tenderness to palpation of the mid lumbar and sacral region, no overlying skin erythema or skin changes. NEURO: AOx3. ?Clear speech. ?Moves all 4 extremities appropriately. SKIN: Facial flush present, no other rashes identified. Initial Vital Signs Initial Vital Signs: Vital Signs Temperature 103.5 F H 01/03/25 13:45 Pulse Rate 104 H 01/03/25 13:45 Respiratory Rate 16 01/03/25 13:45 Blood Pressure 131/75 01/03/25 13:45 Pulse Oximetry 96 01/03/25 13:45 Oxygen Delivery Method Room Air 01/03/25 13:45 <Abbey Talavera DO - Last Filed: 01/08/25 23:52> Initial Vital Signs Initial Vital Signs: Vital Signs Temperature 103.5 F H 01/03/25 13:45 Pulse Rate 104 H 01/03/25 13:45 Respiratory Rate 16 01/03/25 13:45 Blood Pressure 131/75 01/03/25 13:45 Pulse Oximetry 96 01/03/25 13:45 Oxygen Delivery Method Room Air 01/03/25 13:45 Course <Renée Hernandez PA-C - Last Filed: 01/03/25 19:30> Orders Ordered: Discontinued Medications Acetaminophen (Acetaminophen 325 Mg Tablet) 975 mg PO NOW ONE Stop: 01/03/25 14:54 Last Admin: 01/03/25 16:13 Dose: 975 mg Documented By: MARIANO Acetaminophen (Acetaminophen 325 Mg Tablet) 650 mg PO Q6H PRN PRN Reason: Fever/Mild Pain (1-3) Last Admin: 01/06/25 20:16 Dose: 650 mg Documented By: Admin: 01/06/25 04:07 Dose: 650 mg Documented By: Admin: 01/05/25 14:54 Dose: 650 mg Documented By: Admin: 01/05/25 03:17 Dose: 650 mg Documented By: Admin: 01/04/25 21:15 Dose: 650 mg Documented By: Admin: 01/04/25 08:16 Dose: 650 mg Documented By: MORENO Benzocaine (Benzocaine/Menthol 1 Joe Pkt) 1 each PO Q1H PRN PRN Reason: Sore Throat Last Admin: 01/06/25 00:45 Dose: 1 each Documented By: Admin: 01/05/25 20:47 Dose: 1 each Documented By: Admin: 01/05/25 03:13 Dose: 1 each Documented By: RAFAELA Cyclobenzaprine HCl (Cyclobenzaprine 10 Mg Tablet) 10 mg PO Q8HR PRN PRN Reason: Spasms Last Admin: 01/06/25 20:16 Dose: 10 mg Documented By: Admin: 01/05/25 21:52 Dose: 10 mg Documented By: Admin: 01/05/25 12:18 Dose: 10 mg Documented By: Admin: 01/04/25 19:41 Dose: 10 mg Documented By: Admin: 01/04/25 11:10 Dose: 10 mg Documented By: MORENO Doxycycline Hyclate (Doxycycline Hyclate 100 Mg Tablet) 100 mg PO NOW ONE Stop: 01/03/25 15:19 Last Admin: 01/03/25 16:15 Dose: 100 mg Documented By: MARIANO Heparin Sodium (Porcine) (Heparin 5,000 Unit/Ml Vial) 5,000 unit SUBCUT BID [facility] Last Admin: 01/07/25 09:50 Dose: 5,000 unit Documented By: Admin: 01/06/25 20:15 Dose: 5,000 unit Documented By: Admin: 01/06/25 11:39 Dose: 5,000 unit Documented By: Admin: 01/05/25 20:43 Dose: 5,000 unit Documented By: Admin: 01/05/25 08:59 Dose: 5,000 unit Documented By: Admin: 01/04/25 21:15 Dose: 5,000 unit Documented By: Admin: 01/04/25 08:16 Dose: 5,000 unit Documented By: Admin: 01/03/25 22:00 Dose: 5,000 unit Documented By: GISSELLE Hydromorphone HCl (Hydromorphone Hcl 0.5 Mg/0.5 Ml Syringe) 0.5 mg IV NOW ONE Stop: 01/03/25 15:03 Last Admin: 01/03/25 16:16 Dose: 0.5 mg Documented By: MARIANO Hydromorphone HCl (Hydromorphone Hcl 0.5 Mg/0.5 Ml Syringe) 0.5 mg IV Q2H PRN PRN Reason: Pain, Severe (7-10) Last Admin: 01/04/25 05:30 Dose: 0.5 mg Documented By: Admin: 01/03/25 22:12 Dose: 0.5 mg Documented By: Admin: 01/03/25 19:45 Dose: 0.5 mg Documented By: GISSELLE Hydromorphone HCl (Hydromorphone 1 Mg/Ml Syringe) 1 mg IV Q2H PRN PRN Reason: Pain, Severe (7-10) Last Admin: 01/06/25 16:49 Dose: 1 mg Documented By: Admin: 01/06/25 11:46 Dose: 1 mg Documented By: Admin: 01/06/25 04:10 Dose: 1 mg Documented By: Admin: 01/05/25 23:56 Dose: 1 mg Documented By: Admin: 01/05/25 20:43 Dose: 1 mg Documented By: Admin: 01/05/25 16:42 Dose: 1 mg Documented By: ANN Sodium Chloride (Normal Saline 0.9%) 1,000 mls @ 1,000 mls/hr IV BOLUS ONE Stop: 01/03/25 14:59 Last Infusion: 01/03/25 15:54 Dose: Infused Documented By: Admin: 01/03/25 14:44 Dose: 1,000 mls/hr Documented By: JT Ceftriaxone Sodium 1,000 mg/ (Sodium Chloride) 100 mls @ 200 mls/hr IV NOW ONE Stop: 01/03/25 15:19 Last Infusion: 01/03/25 17:23 Dose: Infused Documented By: Admin: 01/03/25 16:14 Dose: 200 mls/hr Documented By: RB Sodium Chloride (Normal Saline 0.9%) 1,733 mls @ 866.5 mls/hr IV BOLUS ONE Stop: 01/03/25 18:14 Last Infusion: 01/03/25 18:52 Dose: Infused Documented By: Admin: 01/03/25 16:26 Dose: 866.5 mls/hr Documented By: RB Sodium Chloride (Normal Saline 0.9%) 2,735.16 mls @ 1,823.44 mls/hr 30 ml/kg infuse over 90 min (2735.16 ml) IV NOW ONE Stop: 01/03/25 18:02 Last Admin: 01/03/25 18:53 Dose: Not Given Documented By: JT Sodium Chloride (Normal Saline 0.9%) 1,000 mls @ 100 mls/hr IV CONT YARA Last Infusion: 01/06/25 11:47 Dose: Infused Documented By: Admin: 01/05/25 20:44 Dose: 100 mls/hr Documented By: Infusion: 01/05/25 20:44 Dose: Infused Documented By: Admin: 01/05/25 10:58 Dose: 100 mls/hr Documented By: Infusion: 01/05/25 10:58 Dose: Infused Documented By: Admin: 01/05/25 01:08 Dose: 100 mls/hr Documented By: Infusion: 01/05/25 01:08 Dose: Infused Documented By: Admin: 01/04/25 15:42 Dose: 100 mls/hr Documented By: Infusion: 01/04/25 15:25 Dose: Infused Documented By: Admin: 01/04/25 05:25 Dose: 100 mls/hr Documented By: Infusion: 01/04/25 05:25 Dose: Infused Documented By: Admin: 01/03/25 19:45 Dose: 100 mls/hr Documented By: GISSELLE Ceftriaxone Sodium 2,000 mg/ (Sodium Chloride) 100 mls @ 200 mls/hr IV Q24H [facility] Last Infusion: 01/07/25 09:53 Dose: Infused Documented By: Admin: 01/07/25 09:00 Dose: 200 mls/hr Documented By: Infusion: 01/06/25 12:30 Dose: Infused Documented By: Admin: 01/06/25 09:26 Dose: 200 mls/hr Documented By: Infusion: 01/05/25 09:40 Dose: Infused Documented By: Admin: 01/05/25 08:59 Dose: 200 mls/hr Documented By: Infusion: 01/04/25 09:30 Dose: Infused Documented By: Admin: 01/04/25 08:18 Dose: 200 mls/hr Documented By: MORENO Doxycycline Hyclate 100 mg/ (Sodium Chloride) 100 mls @ 100 mls/hr IV Q12H [facility] Last Infusion: 01/07/25 11:50 Dose: Infused Documented By: Admin: 01/07/25 09:51 Dose: 100 mls/hr Documented By: Infusion: 01/06/25 22:14 Dose: Infused Documented By: Admin: 01/06/25 20:15 Dose: 100 mls/hr Documented By: Infusion: 01/06/25 14:54 Dose: Infused Documented By: Admin: 01/06/25 12:45 Dose: 100 mls/hr Documented By: Infusion: 01/05/25 21:57 Dose: Infused Documented By: Admin: 01/05/25 20:43 Dose: 100 mls/hr Documented By: Infusion: 01/05/25 12:53 Dose: Infused Documented By: Admin: 01/05/25 10:59 Dose: 100 mls/hr Documented By: Infusion: 01/04/25 23:22 Dose: Infused Documented By: Admin: 01/04/25 21:14 Dose: 100 mls/hr Documented By: Infusion: 01/04/25 11:19 Dose: Infused Documented By: Admin: 01/04/25 09:22 Dose: 100 mls/hr Documented By: ADELA Ibuprofen (Ibuprofen 400 Mg Tablet) 400 mg PO Q8HR PRN PRN Reason: Pain or fever Last Admin: 01/05/25 01:53 Dose: 400 mg Documented By: Admin: 01/04/25 15:42 Dose: 400 mg Documented By: MORENO Ketorolac Tromethamine (Ketorolac 30 Mg/Ml Vial) 30 mg IV Q6H PRN PRN Reason: Pain, Moderate (4-6) Stop: 01/08/25 23:41 Last Admin: 01/05/25 14:53 Dose: 30 mg Documented By: Admin: 01/04/25 06:46 Dose: 30 mg Documented By: Admin: 01/03/25 23:56 Dose: 30 mg Documented By: GISSELLE Lidocaine (Lidocaine 5% Patch) 1 each TOP DAILY [facility] Last Admin: 01/07/25 09:48 Dose: Not Given Documented By: Admin: 01/06/25 11:37 Dose: Not Given Documented By: Admin: 01/05/25 09:03 Dose: 1 each Documented By: Admin: 01/04/25 08:18 Dose: 1 each Documented By: MORENO Naloxone HCl (Naloxone 0.4 Mg/Ml Vial) 0.2 mg IV Q2MIN PRN PRN Reason: Opiate Reversal Ondansetron HCl (Ondansetron 4 Mg/2 Ml Inj) 4 mg IV NOW PRN PRN Reason: Nausea And Vomiting Ondansetron HCl (Ondansetron 4 Mg Odt) 4 mg PO NOW PRN PRN Reason: Nausea And Vomiting Ondansetron HCl (Ondansetron 4 Mg/2 Ml Inj) 4 mg IV Q8HR PRN PRN Reason: Nausea And Vomiting Ondansetron HCl (Ondansetron 4 Mg/2 Ml Inj) 4 mg IV Q2HR [facility] Last Admin: 01/04/25 11:20 Dose: Not Given Documented By: MORENO Oxycodone HCl (Oxycodone Ir 5 Mg Tablet) 5 mg PO Q3H PRN PRN Reason: Pain, Moderate (4-6) Oxycodone HCl (Oxycodone Ir 5 Mg Tablet) 5 mg PO Q6H PRN PRN Reason: pain Last Admin: 01/04/25 09:12 Dose: 5 mg Documented By: Admin: 01/03/25 23:56 Dose: 5 mg Documented By: GISSELLE Oxycodone HCl (Oxycodone Ir 5 Mg Tablet) 10 mg PO Q4HR [facility] Oxycodone HCl (Oxycodone Ir 5 Mg Tablet) 10 mg PO Q4HR PRN PRN Reason: Pain, Moderate (4-6) Last Admin: 01/07/25 08:40 Dose: 10 mg Documented By: Admin: 01/06/25 20:16 Dose: 10 mg Documented By: Admin: 01/04/25 16:45 Dose: 10 mg Documented By: Admin: 01/04/25 12:17 Dose: 10 mg Documented By: MORENO Oxymetazoline HCl (Oxymetazoline Nasal [place] 30 Ml) 2 sprays NASAL Q12HR PRN PRN Reason: Congestion Last Admin: 01/05/25 20:46 Dose: 2 sprays Documented By: RAFAELA Propranolol HCl (Propranolol 10 Mg Tablet) 20 mg PO .qday PRN PRN Reason: Anxiety Quetiapine Fumarate (Quetiapine 25 Mg Tablet) 100 mg PO .qhs [facility] Last Admin: 01/03/25 23:55 Dose: 100 mg Documented By: GISSELLE Quetiapine Fumarate (Quetiapine 25 Mg Tablet) 100 mg PO BEDTIME [facility] Last Admin: 01/04/25 21:15 Dose: 100 mg Documented By: RAFAELA Sodium Chloride (Sodium Chloride 0.9% Flush) 10 ml IV BID [facility] Last Admin: 01/07/25 09:51 Dose: 10 ml Documented By: Admin: 01/06/25 20:17 Dose: 10 ml Documented By: Admin: 01/06/25 14:56 Dose: 10 ml Documented By: Admin: 01/05/25 20:56 Dose: Not Given Documented By: RAFAELA Trazodone HCl (Trazodone 50 Mg Tablet) 50 mg PO BEDTIME [facility] Last Admin: 01/06/25 20:16 Dose: 50 mg Documented By: Admin: 01/05/25 21:52 Dose: 50 mg Documented By: Admin: 01/04/25 21:15 Dose: 50 mg Documented By: Admin: 01/04/25 02:53 Dose: Not Given Documented By: GISSELLE Vital Signs Vital signs: Vital Signs - 8 hr 01/03/25 13:45 01/03/25 13:58 01/03/25 13:59 Temperature 103.5 F H Pulse Rate 104 H 101 H Respiratory Rate 16 Blood Pressure 131/75 136/63 Pulse Oximetry 96 95 Oxygen Delivery Method Room Air 01/03/25 13:59 01/03/25 14:00 01/03/25 14:30 Temperature Pulse Rate 101 H 99 H 98 H Respiratory Rate 24 20 Blood Pressure Pulse Oximetry 96 95 95 Oxygen Delivery Method 01/03/25 15:00 01/03/25 15:30 01/03/25 16:13 Temperature 103.7 F H Pulse Rate 96 H 93 H Respiratory Rate 21 28 H Blood Pressure Pulse Oximetry 97 96 Oxygen Delivery Method 01/03/25 16:17 01/03/25 16:18 01/03/25 16:18 Temperature Pulse Rate 95 H 99 H Respiratory Rate Blood Pressure 112/65 Pulse Oximetry 96 95 Oxygen Delivery Method 01/03/25 16:30 01/03/25 16:30 01/03/25 17:00 Temperature Pulse Rate 95 H 95 H Respiratory Rate Blood Pressure 113/66 Pulse Oximetry 96 93 Oxygen Delivery Method 01/03/25 17:00 01/03/25 17:30 01/03/25 17:30 Temperature 101.5 F H Pulse Rate 94 H Respiratory Rate 17 16 Blood Pressure 111/58 L 100/56 L Pulse Oximetry 94 94 Oxygen Delivery Method 01/03/25 17:41 Temperature 101.5 F H Pulse Rate Respiratory Rate Blood Pressure Pulse Oximetry Oxygen Delivery Method <Abbey Talavera, - Last Filed: 01/08/25 23:52> Orders Ordered: Discontinued Medications Acetaminophen (Acetaminophen 325 Mg Tablet) 975 mg PO NOW ONE Stop: 01/03/25 14:54 Last Admin: 01/03/25 16:13 Dose: 975 mg Documented By: MARIANO Acetaminophen (Acetaminophen 325 Mg Tablet) 650 mg PO Q6H PRN PRN Reason: Fever/Mild Pain (1-3) Last Admin: 01/06/25 20:16 Dose: 650 mg Documented By: Admin: 01/06/25 04:07 Dose: 650 mg Documented By: Admin: 01/05/25 14:54 Dose: 650 mg Documented By: Admin: 01/05/25 03:17 Dose: 650 mg Documented By: Admin: 01/04/25 21:15 Dose: 650 mg Documented By: Admin: 01/04/25 08:16 Dose: 650 mg Documented By: MORENO Benzocaine (Benzocaine/Menthol 1 Joe Pkt) 1 each PO Q1H PRN PRN Reason: Sore Throat Last Admin: 01/06/25 00:45 Dose: 1 each Documented By: Admin: 01/05/25 20:47 Dose: 1 each Documented By: Admin: 01/05/25 03:13 Dose: 1 each Documented By: RAFAELA Cyclobenzaprine HCl (Cyclobenzaprine 10 Mg Tablet) 10 mg PO Q8HR PRN PRN Reason: Spasms Last Admin: 01/06/25 20:16 Dose: 10 mg Documented By: Admin: 01/05/25 21:52 Dose: 10 mg Documented By: Admin: 01/05/25 12:18 Dose: 10 mg Documented By: Admin: 01/04/25 19:41 Dose: 10 mg Documented By: Admin: 01/04/25 11:10 Dose: 10 mg Documented By: MORENO Doxycycline Hyclate (Doxycycline Hyclate 100 Mg Tablet) 100 mg PO NOW ONE Stop: 01/03/25 15:19 Last Admin: 01/03/25 16:15 Dose: 100 mg Documented By: MARIANO Heparin Sodium (Porcine) (Heparin 5,000 Unit/Ml Vial) 5,000 unit SUBCUT BID [facility] Last Admin: 01/07/25 09:50 Dose: 5,000 unit Documented By: Admin: 01/06/25 20:15 Dose: 5,000 unit Documented By: Admin: 01/06/25 11:39 Dose: 5,000 unit Documented By: Admin: 01/05/25 20:43 Dose: 5,000 unit Documented By: Admin: 01/05/25 08:59 Dose: 5,000 unit Documented By: Admin: 01/04/25 21:15 Dose: 5,000 unit Documented By: Admin: 01/04/25 08:16 Dose: 5,000 unit Documented By: Admin: 01/03/25 22:00 Dose: 5,000 unit Documented By: GISSELLE Hydromorphone HCl (Hydromorphone Hcl 0.5 Mg/0.5 Ml Syringe) 0.5 mg IV NOW ONE Stop: 01/03/25 15:03 Last Admin: 01/03/25 16:16 Dose: 0.5 mg Documented By: MARIANO Hydromorphone HCl (Hydromorphone Hcl 0.5 Mg/0.5 Ml Syringe) 0.5 mg IV Q2H PRN PRN Reason: Pain, Severe (7-10) Last Admin: 01/04/25 05:30 Dose: 0.5 mg Documented By: Admin: 01/03/25 22:12 Dose: 0.5 mg Documented By: Admin: 01/03/25 19:45 Dose: 0.5 mg Documented By: GISSELLE Hydromorphone HCl (Hydromorphone 1 Mg/Ml Syringe) 1 mg IV Q2H PRN PRN Reason: Pain, Severe (7-10) Last Admin: 01/06/25 16:49 Dose: 1 mg Documented By: Admin: 01/06/25 11:46 Dose: 1 mg Documented By: Admin: 01/06/25 04:10 Dose: 1 mg Documented By: Admin: 01/05/25 23:56 Dose: 1 mg Documented By: Admin: 01/05/25 20:43 Dose: 1 mg Documented By: Admin: 01/05/25 16:42 Dose: 1 mg Documented By: ANN Sodium Chloride (Normal Saline 0.9%) 1,000 mls @ 1,000 mls/hr IV BOLUS ONE Stop: 01/03/25 14:59 Last Infusion: 01/03/25 15:54 Dose: Infused Documented By: Admin: 01/03/25 14:44 Dose: 1,000 mls/hr Documented By: JT Ceftriaxone Sodium 1,000 mg/ (Sodium Chloride) 100 mls @ 200 mls/hr IV NOW ONE Stop: 01/03/25 15:19 Last Infusion: 01/03/25 17:23 Dose: Infused Documented By: Admin: 01/03/25 16:14 Dose: 200 mls/hr Documented By: RB Sodium Chloride (Normal Saline 0.9%) 1,733 mls @ 866.5 mls/hr IV BOLUS ONE Stop: 01/03/25 18:14 Last Infusion: 01/03/25 18:52 Dose: Infused Documented By: Admin: 01/03/25 16:26 Dose: 866.5 mls/hr Documented By: MARIANO Sodium Chloride (Normal Saline 0.9%) 2,735.16 mls @ 1,823.44 mls/hr 30 ml/kg infuse over 90 min (2735.16 ml) IV NOW ONE Stop: 01/03/25 18:02 Last Admin: 01/03/25 18:53 Dose: Not Given Documented By: JT Sodium Chloride (Normal Saline 0.9%) 1,000 mls @ 100 mls/hr IV CONT YARA Last Infusion: 01/06/25 11:47 Dose: Infused Documented By: Admin: 01/05/25 20:44 Dose: 100 mls/hr Documented By: Infusion: 01/05/25 20:44 Dose: Infused Documented By: Admin: 01/05/25 10:58 Dose: 100 mls/hr Documented By: Infusion: 01/05/25 10:58 Dose: Infused Documented By: Admin: 01/05/25 01:08 Dose: 100 mls/hr Documented By: Infusion: 01/05/25 01:08 Dose: Infused Documented By: Admin: 01/04/25 15:42 Dose: 100 mls/hr Documented By: Infusion: 01/04/25 15:25 Dose: Infused Documented By: Admin: 01/04/25 05:25 Dose: 100 mls/hr Documented By: Infusion: 01/04/25 05:25 Dose: Infused Documented By: Admin: 01/03/25 19:45 Dose: 100 mls/hr Documented By: GISSELLE Ceftriaxone Sodium 2,000 mg/ (Sodium Chloride) 100 mls @ 200 mls/hr IV Q24H [facility] Last Infusion: 01/07/25 09:53 Dose: Infused Documented By: Admin: 01/07/25 09:00 Dose: 200 mls/hr Documented By: Infusion: 01/06/25 12:30 Dose: Infused Documented By: Admin: 01/06/25 09:26 Dose: 200 mls/hr Documented By: Infusion: 01/05/25 09:40 Dose: Infused Documented By: Admin: 01/05/25 08:59 Dose: 200 mls/hr Documented By: Infusion: 01/04/25 09:30 Dose: Infused Documented By: Admin: 01/04/25 08:18 Dose: 200 mls/hr Documented By: MORENO Doxycycline Hyclate 100 mg/ (Sodium Chloride) 100 mls @ 100 mls/hr IV Q12H [facility] Last Infusion: 01/07/25 11:50 Dose: Infused Documented By: Admin: 01/07/25 09:51 Dose: 100 mls/hr Documented By: Infusion: 01/06/25 22:14 Dose: Infused Documented By: Admin: 01/06/25 20:15 Dose: 100 mls/hr Documented By: Infusion: 01/06/25 14:54 Dose: Infused Documented By: Admin: 01/06/25 12:45 Dose: 100 mls/hr Documented By: Infusion: 01/05/25 21:57 Dose: Infused Documented By: Admin: 01/05/25 20:43 Dose: 100 mls/hr Documented By: Infusion: 01/05/25 12:53 Dose: Infused Documented By: Admin: 01/05/25 10:59 Dose: 100 mls/hr Documented By: Infusion: 01/04/25 23:22 Dose: Infused Documented By: Admin: 01/04/25 21:14 Dose: 100 mls/hr Documented By: Infusion: 01/04/25 11:19 Dose: Infused Documented By: Admin: 01/04/25 09:22 Dose: 100 mls/hr Documented By: ADELA Ibuprofen (Ibuprofen 400 Mg Tablet) 400 mg PO Q8HR PRN PRN Reason: Pain or fever Last Admin: 01/05/25 01:53 Dose: 400 mg Documented By: Admin: 01/04/25 15:42 Dose: 400 mg Documented By: MORENO Ketorolac Tromethamine (Ketorolac 30 Mg/Ml Vial) 30 mg IV Q6H PRN PRN Reason: Pain, Moderate (4-6) Stop: 01/08/25 23:41 Last Admin: 01/05/25 14:53 Dose: 30 mg Documented By: Admin: 01/04/25 06:46 Dose: 30 mg Documented By: Admin: 01/03/25 23:56 Dose: 30 mg Documented By: GISSELLE Lidocaine (Lidocaine 5% Patch) 1 each TOP DAILY [facility] Last Admin: 01/07/25 09:48 Dose: Not Given Documented By: Admin: 01/06/25 11:37 Dose: Not Given Documented By: Admin: 01/05/25 09:03 Dose: 1 each Documented By: Admin: 01/04/25 08:18 Dose: 1 each Documented By: MORENO Naloxone HCl (Naloxone 0.4 Mg/Ml Vial) 0.2 mg IV Q2MIN PRN PRN Reason: Opiate Reversal Ondansetron HCl (Ondansetron 4 Mg/2 Ml Inj) 4 mg IV NOW PRN PRN Reason: Nausea And Vomiting Ondansetron HCl (Ondansetron 4 Mg Odt) 4 mg PO NOW PRN PRN Reason: Nausea And Vomiting Ondansetron HCl (Ondansetron 4 Mg/2 Ml Inj) 4 mg IV Q8HR PRN PRN Reason: Nausea And Vomiting Ondansetron HCl (Ondansetron 4 Mg/2 Ml Inj) 4 mg IV Q2HR [facility] Last Admin: 01/04/25 11:20 Dose: Not Given Documented By: MORENO Oxycodone HCl (Oxycodone Ir 5 Mg Tablet) 5 mg PO Q3H PRN PRN Reason: Pain, Moderate (4-6) Oxycodone HCl (Oxycodone Ir 5 Mg Tablet) 5 mg PO Q6H PRN PRN Reason: pain Last Admin: 01/04/25 09:12 Dose: 5 mg Documented By: Admin: 01/03/25 23:56 Dose: 5 mg Documented By: GISSELLE Oxycodone HCl (Oxycodone Ir 5 Mg Tablet) 10 mg PO Q4HR [facility] Oxycodone HCl (Oxycodone Ir 5 Mg Tablet) 10 mg PO Q4HR PRN PRN Reason: Pain, Moderate (4-6) Last Admin: 01/07/25 08:40 Dose: 10 mg Documented By: Admin: 01/06/25 20:16 Dose: 10 mg Documented By: Admin: 01/04/25 16:45 Dose: 10 mg Documented By: Admin: 01/04/25 12:17 Dose: 10 mg Documented By: MORENO Oxymetazoline HCl (Oxymetazoline Nasal [place] 30 Ml) 2 sprays NASAL Q12HR PRN PRN Reason: Congestion Last Admin: 01/05/25 20:46 Dose: 2 sprays Documented By: RAFAELA Propranolol HCl (Propranolol 10 Mg Tablet) 20 mg PO .qday PRN PRN Reason: Anxiety Quetiapine Fumarate (Quetiapine 25 Mg Tablet) 100 mg PO .qhs [facility] Last Admin: 01/03/25 23:55 Dose: 100 mg Documented By: GISSELLE Quetiapine Fumarate (Quetiapine 25 Mg Tablet) 100 mg PO BEDTIME [facility] Last Admin: 01/04/25 21:15 Dose: 100 mg Documented By: RAFAELA Sodium Chloride (Sodium Chloride 0.9% Flush) 10 ml IV BID [facility] Last Admin: 01/07/25 09:51 Dose: 10 ml Documented By: Admin: 01/06/25 20:17 Dose: 10 ml Documented By: Admin: 01/06/25 14:56 Dose: 10 ml Documented By: Admin: 01/05/25 20:56 Dose: Not Given Documented By: RAFAELA Trazodone HCl (Trazodone 50 Mg Tablet) 50 mg PO BEDTIME [facility] Last Admin: 01/06/25 20:16 Dose: 50 mg Documented By: Admin: 01/05/25 21:52 Dose: 50 mg Documented By: Admin: 01/04/25 21:15 Dose: 50 mg Documented By: Admin: 01/04/25 02:53 Dose: Not Given Documented By: GISSELLE Vital Signs Vital signs: Vital Signs - 8 hr 01/03/25 13:45 01/03/25 13:58 01/03/25 13:59 Temperature 103.5 F H Pulse Rate 104 H 101 H Respiratory Rate 16 Blood Pressure 131/75 136/63 Pulse Oximetry 96 95 Oxygen Delivery Method Room Air 01/03/25 13:59 01/03/25 14:00 01/03/25 14:30 Temperature Pulse Rate 101 H 99 H 98 H Respiratory Rate 24 20 Blood Pressure Pulse Oximetry 96 95 95 Oxygen Delivery Method 01/03/25 15:00 01/03/25 15:30 01/03/25 16:13 Temperature 103.7 F H Pulse Rate 96 H 93 H Respiratory Rate 21 28 H Blood Pressure Pulse Oximetry 97 96 Oxygen Delivery Method 01/03/25 16:17 01/03/25 16:18 01/03/25 16:18 Temperature Pulse Rate 95 H 99 H Respiratory Rate Blood Pressure 112/65 Pulse Oximetry 96 95 Oxygen Delivery Method 01/03/25 16:30 01/03/25 16:30 01/03/25 17:00 Temperature Pulse Rate 95 H 95 H Respiratory Rate Blood Pressure 113/66 Pulse Oximetry 96 93 Oxygen Delivery Method 01/03/25 17:00 01/03/25 17:30 01/03/25 17:30 Temperature 101.5 F H Pulse Rate 94 H Respiratory Rate 17 16 Blood Pressure 111/58 L 100/56 L Pulse Oximetry 94 94 Oxygen Delivery Method 01/03/25 17:41 Temperature 101.5 F H Pulse Rate Respiratory Rate Blood Pressure Pulse Oximetry Oxygen Delivery Method Sepsis Evaluation (ED) <Renée Hernandez PA-C - Last Filed: 01/03/25 19:30> Triage Screening Sepsis Screen: Meets SIRS Criteria Level 1 - Infection Sepsis Infection Criteria Present: None Response It is my opinion that this patient have a likely infectious etiology for meeting sepsis criteria: Does Fluid calculation based on 30 mL/kg within 1hr of criteria: ABW used Antibiotics initiated within 1 hr of Sepis dx: Yes Tissue Perfusion Reassessed within 6 hrs of infusion start time: No (patient admitted) MDM - Sepsis <Renée Hernandze PA-C - Last Filed: 01/03/25 19:30> Medical Records Attestation: I reviewed the patient's medical records. Lab Data 01/05/25 07:05 01/05/25 07:05 Labs: Lab Results 01/03/25 01/03/25 Range/Units 14:08 17:05 WBC 3.8 L (4.5-11.0) X10^3/uL RBC 3.92 L (4.5-5.9) X10^6/uL Hgb 12.0 L (13.5-17.5) g/dL Hct 35.5 L (41-53) % MCV 90.7 (80-100) fL MCH 30.5 (26-34) PG MCHC 33.7 (30-36) % RDW 17.4 H (11.6-14.8) % Plt Count 155 (150-400) X10^3/uL Neut % (Auto) 81.0 H (50-75) % Lymph % (Auto) 11.4 L (25-40) % [place] % (Auto) 7.0 (3-14) % Eos % (Auto) 0.0 L (2-4) % Baso % (Auto) 0.6 (0-2) % Neut # (Auto) 3100 (1670-6113) /uL Lymph # (Auto) 400 L (2017-8115) /uL [place] # (Auto) 300 (0-900) /uL Eos # (Auto) 0 (0-450) /uL Baso # (Auto) 0 (0-100) /uL PT 12.5 (9.4-12.5) SECONDS INR 1.1 (0.9-1.3) APTT 31 (25.1-36.5) SECONDS Sodium 137 (137-145) mmol/L Potassium 3.7 (3.4-5.1) mmol/L Chloride 102 (98-107) mmol/L Carbon Dioxide 22 (22-32) mmol/L BUN 8 L (9-20) mg/dL Creatinine 0.70 (0.66-1.25) mg/dL Estimated GFR > 60 (>60) mL/min BUN/Creatinine Ratio 11.4 (6-22) Glucose 110 H (70-99) mg/dL Lactate 0.9 (0.7-2.1) mmol/L Calcium 9.2 (8.4-10.2) mg/dL Total Bilirubin 0.6 (0.2-1.3) mg/dL AST 26 (17-59) IU/L ALT 19 (<50) IU/L Alkaline Phosphatase 59 (38-126) U/L Total Creatine Kinase 26 L (55-170) U/L Troponin I < 0.012 (0.01-0.034) ng/mL Total Protein 7.7 (6.3-8.2) g/dL Albumin 4.1 (3.5-5.0) g/dL Globulin 3.6 (1.7-4.1) g/dL Albumin/Globulin Ratio 1.1 (1.0-2.8) Lipase 21 L (23-300) U/L Procalcitonin 0.233 (<0.5) ng/mL Chlamy pneumoniae PCR Not detected (Not Detect) Adenovirus (PCR) Not detected (Not Detect) B. pertussis DNA (PCR) Not detected (Not Detect) B.parapertussis DNA PCR Not detected (Not Detecte) Coronavirus OC43 (PCR) Not detected (Not Detect) Coronavirus HKU1 (PCR) Not detected (Not Detect) Coronavirus 229E (PCR) Not detected (Not Detect) SARS-CoV-2 (PCR) Not detected (Not Detecte) Coronavirus NL63 (PCR) Not detected (Not Detect) Human Metapneumovir PCR Not detected (Not Detect) Influenza Type A (PCR) Not detected (Not Detect) Influenza Type B (PCR) Not detected (Not Detect) M. pneumoniae (PCR) Not detected (Not Detect) Parainfluenza 1 (PCR) Not detected (Not Detect) Parainfluenza 2 (PCR) Not detected (Not Detect) Parainfluenza 3 (PCR) Not detected (Not Detect) Parainfluenza 4 (PCR) Not detected (Not Detect) RSV (PCR) Not detected (Not Detect) Entero/Rhino (PCR) Not detected (Not Detect) Urine Dip Bedside Urine Glucose Negative Bedside Urine Bilirubin - Negative Bedside Urine Ketone +++ 80 Urine Specific [place] 1.010 Bedside Urine Occult Blood - Negative Bedside Urine pH 6.0 Bedside Urine Protein - Negative Bedside Urine Urobilinogen - Negative Bedside Urine Nitrite - Negative Bedside Urine Leukocytes - Negative Esterase Imaging Data Chest x-ray: Radiologist's Impression: PROCEDURE: XR CHEST 1V INDICATIONS: suspected sepsis TECHNIQUE: One view of the chest was acquired. COMPARISON: [facility], , XR CHEST 1V, 12/31/2024, 20:47. FINDINGS: Surgical changes and devices: None. Lungs and pleura: Consolidation in the right upper lobe suprahilar region. No pneumothorax or pleural effusion. Mediastinum: Mediastinal contours appear normal. Heart size is normal. Bones and chest wall: No suspicious bony lesions. Overlying soft tissues appear unremarkable. IMPRESSION: Right upper lobe consolidation concerning for pneumonia. Follow-up to resolution recommended to exclude underlying mass. Dictated by: Dank Rich M.D. on 01/03/2025 at 14:56 Approved by: Dank Rich M.D. on 01/03/2025 at 14:57 Lumbar MRI: Radiologist's Impression: PROCEDURE: MR LUMBAR SPINE WO/W CON INDICATIONS: midline lumbar pain/tenderness; sepsis TECHNIQUE: Noncontrast sagittal T1 spin echo and T2 fast echo, sagittal STIR, and T2 fast spin echo through the lumbar spine. In cases with scoliosis, additional coronal T2 fast spin echo may be performed. In C.OMPARISON: FINDINGS: Image quality: Excellent. Alignment and Curvature: There is normal bony alignment. Bone Marrow: Marrow is of normal overall signal. No acute vertebral body compression fractures. Spinal Cord: Conus medullaris terminates at the L1-L2 level. Visualized cord demonstrates normal signal and size. Paraspinous Soft Tissues: No paravertebral masses. T12-L1: No canal stenosis or foraminal stenosis. L1-L2: No canal stenosis or foraminal stenosis. L2-L3: No canal stenosis or foraminal stenosis. L3-L4: No canal stenosis or foraminal stenosis. Mild facet hypertrophy. L4-L5: No canal stenosis or foraminal stenosis. Mild facet hypertrophy. L5-S1: No canal stenosis or foraminal stenosis. Mild facet hypertrophy IMPRESSION: 1. Mild lower lumbar facet arthropathy. 2. Otherwise unremarkable study. No canal stenosis or foraminal stenosis. Dictated by: Bonifacio Vazquez M.D. on 01/03/2025 at 16:16 Approved by: Bonifacio Vazquez M.D. on 01/03/2025 at 16:18 [facility] Narrative Medical decision making narrative: 39-year-old male with a past medical history of bipolar disorder, hypertriglyceridemia, pancreatitis with the acute renal failure brief dialysis, alcohol use who presents to the emergency department for persistent fever x4 days. Differential diagnosis includes but is not limited to sepsis, pneumonia, epidural abscess, UTI, neuroleptic malignant syndrome, viral syndrome, Kawasaki syndrome etc. On exam the patient is in no acute distress, nontoxic appearing however he does appear ill, facial flushing, warm, having low back pain. He has had persistent fever for 4 days, worsening of his chronic low back pain and mild cough reported by his mom. No abdominal pain, tenderness, vomiting, diarrhea, sore throat or other symptoms. No IV drug use. Sepsis order set initiated in triage, we will add on lumbar MRI given tenderness in the setting of sepsis. Chest x-ray reveals right upper lobe consolidation concerning for pneumonia, ceftriaxone and doxycycline ordered. Labs reveal decreased WBC count 3.8, hemoglobin 12.0 hematocrit 35.5. Platelets 155. Sodium 137, potassium 3.7, BUN 8 creatinine 0.70. Normal lactate 0.9. Normal LFTs. Normal procalcitonin 0.233. Normal lipase 21. Point of care urinalysis reveals ketones but no signs of infection. MRI lumbar spine reveals mild lower lumbar facet arthropathy otherwise unremarkable study. Discussed all results with the patient. I do believe he warrants admission for treatment of sepsis pneumonia. He is agreeable. 1745: Spoke with hospitalist Dr. Alvarez who graciously accepts the patient for admission, inpatient. Patient is stable for transfer to the floor at this time. <Abbey Aleksandar Talavera, DO - Last Filed: 01/08/25 23:52> Lab Data Labs: Lab Results 01/03/25 01/03/25 Range/Units 14:08 17:05 WBC 3.8 L (4.5-11.0) X10^3/uL RBC 3.92 L (4.5-5.9) X10^6/uL Hgb 12.0 L (13.5-17.5) g/dL Hct 35.5 L (41-53) % MCV 90.7 (80-100) fL MCH 30.5 (26-34) PG MCHC 33.7 (30-36) % RDW 17.4 H (11.6-14.8) % Plt Count 155 (150-400) X10^3/uL Neut % (Auto) 81.0 H (50-75) % Lymph % (Auto) 11.4 L (25-40) % [place] % (Auto) 7.0 (3-14) % Eos % (Auto) 0.0 L (2-4) % Baso % (Auto) 0.6 (0-2) % Neut # (Auto) 3100 (0885-3295) /uL Lymph # (Auto) 400 L (7785-5285) /uL [place] # (Auto) 300 (0-900) /uL Eos # (Auto) 0 (0-450) /uL Baso # (Auto) 0 (0-100) /uL PT 12.5 (9.4-12.5) SECONDS INR 1.1 (0.9-1.3) APTT 31 (25.1-36.5) SECONDS Sodium 137 (137-145) mmol/L Potassium 3.7 (3.4-5.1) mmol/L Chloride 102 (98-107) mmol/L Carbon Dioxide 22 (22-32) mmol/L BUN 8 L (9-20) mg/dL Creatinine 0.70 (0.66-1.25) mg/dL Estimated GFR > 60 (>60) mL/min BUN/Creatinine Ratio 11.4 (6-22) Glucose 110 H (70-99) mg/dL Lactate 0.9 (0.7-2.1) mmol/L Calcium 9.2 (8.4-10.2) mg/dL Total Bilirubin 0.6 (0.2-1.3) mg/dL AST 26 (17-59) IU/L ALT 19 (<50) IU/L Alkaline Phosphatase 59 (38-126) U/L Total Creatine Kinase 26 L (55-170) U/L Troponin I < 0.012 (0.01-0.034) ng/mL Total Protein 7.7 (6.3-8.2) g/dL Albumin 4.1 (3.5-5.0) g/dL Globulin 3.6 (1.7-4.1) g/dL Albumin/Globulin Ratio 1.1 (1.0-2.8) Lipase 21 L (23-300) U/L Procalcitonin 0.233 (<0.5) ng/mL Chlamy pneumoniae PCR Not detected (Not Detect) Adenovirus (PCR) Not detected (Not Detect) B. pertussis DNA (PCR) Not detected (Not Detect) B.parapertussis DNA PCR Not detected (Not Detecte) Coronavirus OC43 (PCR) Not detected (Not Detect) Coronavirus HKU1 (PCR) Not detected (Not Detect) Coronavirus 229E (PCR) Not detected (Not Detect) SARS-CoV-2 (PCR) Not detected (Not Detecte) Coronavirus NL63 (PCR) Not detected (Not Detect) Human Metapneumovir PCR Not detected (Not Detect) Influenza Type A (PCR) Not detected (Not Detect) Influenza Type B (PCR) Not detected (Not Detect) M. pneumoniae (PCR) Not detected (Not Detect) Parainfluenza 1 (PCR) Not detected (Not Detect) Parainfluenza 2 (PCR) Not detected (Not Detect) Parainfluenza 3 (PCR) Not detected (Not Detect) Parainfluenza 4 (PCR) Not detected (Not Detect) RSV (PCR) Not detected (Not Detect) Entero/Rhino (PCR) Not detected (Not Detect) Urine Dip Bedside Urine Glucose Negative Bedside Urine Bilirubin - Negative Bedside Urine Ketone +++ 80 Urine Specific [place] 1.010 Bedside Urine Occult Blood - Negative Bedside Urine pH 6.0 Bedside Urine Protein - Negative Bedside Urine Urobilinogen - Negative Bedside Urine Nitrite - Negative Bedside Urine Leukocytes - Negative Esterase ECG Data Attestation: I personally reviewed and interpreted this ECG as follows: Prior ECG tracings: available for review Interpretation: Sinus rhythm nonspecific ST change, rate of 99 MO 128, QRS of 96 QTC 495, no acute ST-elevation depression noted. Patient has prior from 10/07/2024 which appears similar to today's. Discharge Plan Departure Patient Disposition: Admitted As Inpatient Clinical Impression: Pneumonia Qualifiers: Pneumonia type: due to unspecified organism Laterality: right Lung location: upper lobe of lung Qualified Code(s): J18.9 - Pneumonia, unspecified organism Sepsis Qualifiers: Sepsis type: sepsis due to unspecified organism Sepsis acute organ dysfunction status: unspecified Qualified Code(s): A41.9 - Sepsis, unspecified organism Admit Date/Time: 01/03/25 17:46 Admit Provider: Chito Alvarez ED Sign-out <Abbey Talavera DO - Last Filed: 01/08/25 23:52> Cosign ED Attending Cosbandarature Attestation: I was immediately available in the department for consultation. Case was discussed with myself suspect pneumonia but patient is having low back pain was tender to touch after discussion MR L-spine with and without was obtained to evaluate for epidural abscess which was negative. Plan for admission for sepsis for pneumonia.
[2025-01-03 15:05] LABS: Procalcitonin 0.233 ng/mL (<0.5)
--- NOTE | 2025-01-03 15:25 | DI.MRI.S_ITS ---
PROCEDURE: MR LUMBAR SPINE WO/W CON INDICATIONS: midline lumbar pain/tenderness; sepsis TECHNIQUE: Noncontrast sagittal T1 spin echo and T2 fast echo, sagittal STIR, and T2 fast spin echo through the lumbar spine. In cases with scoliosis, additional coronal T2 fast spin echo may be performed. In C.OMPARISON: FINDINGS: Image quality: Excellent. Alignment and Curvature: There is normal bony alignment. Bone Marrow: Marrow is of normal overall signal. No acute vertebral body compression fractures. Spinal Cord: Conus medullaris terminates at the L1-L2 level. Visualized cord demonstrates normal signal and size. Paraspinous Soft Tissues: No paravertebral masses. T12-L1: No canal stenosis or foraminal stenosis. L1-L2: No canal stenosis or foraminal stenosis. L2-L3: No canal stenosis or foraminal stenosis. L3-L4: No canal stenosis or foraminal stenosis. Mild facet hypertrophy. L4-L5: No canal stenosis or foraminal stenosis. Mild facet hypertrophy. L5-S1: No canal stenosis or foraminal stenosis. Mild facet hypertrophy IMPRESSION: 1. Mild lower lumbar facet arthropathy. 2. Otherwise unremarkable study. No canal stenosis or foraminal stenosis. Dictated by: Bonifacio Vazquez M.D. on 01/03/2025 at 16:16 Approved by: Bonifacio Vazquez M.D. on 01/03/2025 at 16:18
[2025-01-03 15:48] LABS: Creatine Kinase 26 U/L (55-170)
[2025-01-03 16:01] LABS: Troponin I < 0.012 ng/mL (0.01-0.034)
[2025-01-03] MEDS: ACETAMINOPHEN 325 MG TABLET 975 MG PO (16:13)
[2025-01-03] MEDS: DOXYCYCLINE HYCLATE 100 MG TABLET PO (16:15)
--- NOTE | 2025-01-03 16:26 | PC.NURSE ---
This RN took verbal report from primary nurse on this patient for primary nurse meal time. Primary nurse was unaware of patient location. Patient has charted fever without Tylenol administration that was ordered >60 minutes prior. This RN found that patient was in MRI. Patient returned and this RN promptly returned patient to the monitor and took new patient temp which was 103.7F. This RN immediately administered patient Tylenol. Then this RN noted that patient was ordered to have 30ml/kg per hour over 3 hours in the order but no weight was placed for the patient and patient had only received 1000ml of normal saline. This RN called and talked to pharmacy and asked them to redose this amount based on patient weight. This RN informed provider of the delay in care. This RN then administered Doxycycline, Ceftriaxone as they were ordered and Dilaudid for lower back pain all of which were >60 minutes past time of order. This RN informed primary nurse of patient status upon their return and the medications that are currently being administered.
[2025-01-03 18:00] LABS: Coronavirus NL 63 Not Detected (Not Detect); SARS- CoV-2 Not Detected (Not Detecte)
--- NOTE | 2025-01-03 19:26 | PM.HP.1 ---
History of Present Illness History of Present Illness Date Patient Seen: 01/03/25 Time Patient Seen: 19:00 Chief complaint: 105.4 fever not feeling good Narrative: The patient was a 39-year-old male who presents with fever. He was history of bipolar disorder and pancreatitis. The patient was ill last summer and required transient dialysis for RAMOS. The patient came in today with a persistent fever for 4 days. He was seen on December 31 for the symptoms. He was primary complaint is lower back pain. This pain is positional. The patient underwent CT scanning was found to have evidence of a pulmonary infiltrate consistent with pneumonia. He denies cough, or dyspnea. There was no pleuritic chest pain noted. He was quite diaphoretic and clammy. He was also had some anorexia. He denies any urinary symptoms. He also notes some loose stools several days ago, but resolved now. He was on Seroquel and trazodone. Recently his Seroquel was increased and trazodone was started. [facility] Medical History Alcohol abuse Bipolar 2 disorder Social History lives independently: Yes Meds Home Medications and Allergies Home Medications ?Medication ?Instructions ?Recorded ?Confirmed ?Type amoxicillin 875 mg-potassium 1 tab PO BID 10/07/24 10/07/24 History clavulanate 125 mg tablet lorazepam 0.5 mg tablet 1 mg PO BID PRN anxiety 10/07/24 10/07/24 History oxycodone 5 mg tablet PO 10/07/24 History propranolol 20 mg tablet PO 10/07/24 History quetiapine 25 mg tablet 25 mg PO 10/07/24 History vancomycin 125 mg capsule 125 mg PO 4XD 10/07/24 10/07/24 History lorazepam 1 mg tablet 1 mg PO BID PRN anxiety #6 tabs 12/22/24 Rx quetiapine 25 mg tablet 25 mg PO BEDTIME #30 tabs 12/22/24 Rx oxycodone-acetaminophen 5 mg-325 1 tab PO Q6H PRN pain #10 tabs 12/31/24 Rx mg tablet Allergies Allergy/AdvReac Type Severity Reaction Status Date / Time lamotrigine (From Lamictal) Allergy Verified 12/31/24 20:27 Review of Systems Review of Systems Narrative: All else reviewed and otherwise unremarkable except as noted in the history and physical. Exam Vital Signs (past 8 hours): - 01/03/25 13:45 01/03/25 13:58 01/03/25 13:59 Temperature 103.5 F H Pulse Rate 104 H 101 H Respiratory Rate 16 Blood Pressure 131/75 136/63 Pulse Oximetry 96 95 Oxygen Delivery Method Room Air 01/03/25 13:59 01/03/25 14:00 01/03/25 14:30 Temperature Pulse Rate 101 H 99 H 98 H Respiratory Rate 24 20 Blood Pressure Pulse Oximetry 96 95 95 Oxygen Delivery Method 01/03/25 15:00 01/03/25 15:30 01/03/25 16:13 Temperature 103.7 F H Pulse Rate 96 H 93 H Respiratory Rate 21 28 H Blood Pressure Pulse Oximetry 97 96 Oxygen Delivery Method 01/03/25 16:17 01/03/25 16:18 01/03/25 16:18 Temperature Pulse Rate 95 H 99 H Respiratory Rate Blood Pressure 112/65 Pulse Oximetry 96 95 Oxygen Delivery Method 01/03/25 16:30 01/03/25 16:30 01/03/25 17:00 Temperature Pulse Rate 95 H 95 H Respiratory Rate Blood Pressure 113/66 Pulse Oximetry 96 93 Oxygen Delivery Method 01/03/25 17:00 01/03/25 17:30 01/03/25 17:30 Temperature 101.5 F H Pulse Rate 94 H Respiratory Rate 17 16 Blood Pressure 111/58 L 100/56 L Pulse Oximetry 94 94 Oxygen Delivery Method 01/03/25 17:41 01/03/25 18:00 01/03/25 18:00 Temperature 101.5 F H Pulse Rate 90 Respiratory Rate 16 Blood Pressure 102/55 L Pulse Oximetry 95 Oxygen Delivery Method Oxygen Delivery Method Room Air Narrative Exam Narrative: NAD, alert and oriented, fluent speech, calm. Normocephalic skull, EOMI, anicteric sclera, symmetric pupils. Oropharynx unremarkable, no droop. Neck supple, midline trachea, no adenopathy. Lungs clear, normal rate and effort. Heart regular, no murmur gallop or rub. Abdomen is soft, non distended and non tender. Extremities are free of edema. Skin is free of rash or lesions. Joints are not swollen or deformed. Judgment appears to be normal. Objective ECG Impression: Intervals [place] Rate: 99 P: 71 VT: 128 QRS: -13 QRSD: 96 T: 41 QT: 386 QTc: 495 Interpretive Statements Normal sinus rhythm Nonspecific ST abnormality Prolonged QT Imaging Multiple studies: : Radiologist's impression: Chest x-ray: IMPRESSION: Right upper lobe consolidation concerning for pneumonia. Follow-up to resolution recommended to exclude underlying mass. Lumbar MRI: FINDINGS: Image quality: Excellent. Alignment and Curvature: There is normal bony alignment. Bone Marrow: Marrow is of normal overall signal. No acute vertebral body compression fractures. Spinal Cord: Conus medullaris terminates at the L1-L2 level. Visualized cord demonstrates normal signal and size. Paraspinous Soft Tissues: No paravertebral masses. T12-L1: No canal stenosis or foraminal stenosis. L1-L2: No canal stenosis or foraminal stenosis. L2-L3: No canal stenosis or foraminal stenosis. L3-L4: No canal stenosis or foraminal stenosis. Mild facet hypertrophy. L4-L5: No canal stenosis or foraminal stenosis. Mild facet hypertrophy. L5-S1: No canal stenosis or foraminal stenosis. Mild facet hypertrophy IMPRESSION: 1. Mild lower lumbar facet arthropathy. 2. Otherwise unremarkable study. No canal stenosis or foraminal stenosis. Labs 01/03/25 14:08 01/03/25 14:08 Labs: Laboratory Results - last 24 hr 01/03/25 01/03/25 14:08 17:05 WBC 3.8 L RBC 3.92 L Hgb 12.0 L Hct 35.5 L MCV 90.7 MCH 30.5 MCHC 33.7 RDW 17.4 H Plt Count 155 Neut % (Auto) 81.0 H Lymph % (Auto) 11.4 L [place] % (Auto) 7.0 Eos % (Auto) 0.0 L Baso % (Auto) 0.6 Neut # (Auto) 3100 Lymph # (Auto) 400 L [place] # (Auto) 300 Eos # (Auto) 0 Baso # (Auto) 0 PT 12.5 INR 1.1 APTT 31 Sodium 137 Potassium 3.7 Chloride 102 Carbon Dioxide 22 BUN 8 L Creatinine 0.70 Estimated GFR > 60 BUN/Creatinine Ratio 11.4 Glucose 110 H Lactate 0.9 Calcium 9.2 Total Bilirubin 0.6 AST 26 ALT 19 Alkaline Phosphatase 59 Total Creatine Kinase 26 L Troponin I < 0.012 Total Protein 7.7 Albumin 4.1 Globulin 3.6 Albumin/Globulin Ratio 1.1 Lipase 21 L Procalcitonin 0.233 Chlamy pneumoniae PCR Not detected Adenovirus (PCR) Not detected B. pertussis DNA (PCR) Not detected B.parapertussis DNA PCR Not detected Coronavirus OC43 (PCR) Not detected Coronavirus HKU1 (PCR) Not detected Coronavirus 229E (PCR) Not detected SARS-CoV-2 (PCR) Not detected Coronavirus NL63 (PCR) Not detected Human Metapneumovir PCR Not detected Influenza Type A (PCR) Not detected Influenza Type B (PCR) Not detected M. pneumoniae (PCR) Not detected Parainfluenza 1 (PCR) Not detected Parainfluenza 2 (PCR) Not detected Parainfluenza 3 (PCR) Not detected Parainfluenza 4 (PCR) Not detected RSV (PCR) Not detected Entero/Rhino (PCR) Not detected Assessment & Plan Assessment & Plan narrative: 1. Community-acquired pneumonia with 4 days of fever and sepsis, active. 2. Leukopenia secondary to sepsis, active. 3. Bipolar, stable. 4. History of pancreatitis, not active. PLAN: -IV fluids -monitor blood cultures -IV antibiotics, ceftriaxone and doxycycline. -continue usual medications, have considered the possibility of neuroleptic malignant syndrome. There was nothing to support this currently. Anticipate 2 nights in the hospital, supports inpatient status. Full resuscitation. Time-Based Coding :: 35 min spent with patient and on the chart (including review of chart, obtaining history, exam, reviewing outside data, placing orders, documenting exam and treatment plan, and counseling patient) on 01/03. Quality MIPS - Admit I confirm the patient?s Advance Care Plan is present, Code status is documented, Surrogate decision maker is in patient?s record [If Yes, STOP here]: Yes MIPS - Meds 'Current medications' to include all prescriptions, [id number] products, herbals, cannabis/cannabidiol products, and vitamin/mineral/dietary (nutritional) supplements. I have utilized all available resources to obtain, update, or review the patient?s current medications. [If Yes, STOP here]: Yes
[2025-01-03] MEDS: SODIUM CHLORIDE 0.9% 1,000 ML 100 ML IV (19:45)
[2025-01-03] MEDS: HEPARIN 5,000 UNIT/ML VIAL 5000 UNIT SUBCUT (22:00)
--- NOTE | 2025-01-03 23:11 | PC.ADMIT ---
Addendum entered by Valerie Nagel RN 01/04/25 05:34: Earlier Dr. Jara did put in orders for Toradol as well as Oxycodone but declined to increase Dilaudid dose. Patient did verbalize that the Toradol did seem to provide more relief than the Dilaudid. Currently pain is again 9/10 but too early for additional Toradol so medicated with Dilaudid. Original Note: [email or web address] Mail [email or web address] Admission Note: The patient,Ja Arboleda,39 y/o, was given written information regarding hospital policies, unit procedures and contact persons. Patient's smoking status: Never smoker. Vital Signs - 8 hr 01/03/25 15:30 01/03/25 16:13 01/03/25 16:17 Temperature 103.7 F H Pulse Rate 93 H 95 H Respiratory Rate 28 H Blood Pressure Pulse Oximetry 96 96 Oxygen Flow Rate 01/03/25 16:18 01/03/25 16:18 01/03/25 16:30 Temperature Pulse Rate 99 H Respiratory Rate Blood Pressure 112/65 113/66 Pulse Oximetry 95 Oxygen Flow Rate 01/03/25 16:30 01/03/25 17:00 01/03/25 17:00 Temperature Pulse Rate 95 H 95 H Respiratory Rate 17 Blood Pressure 111/58 L Pulse Oximetry 96 93 94 Oxygen Flow Rate 01/03/25 17:30 01/03/25 17:30 01/03/25 17:41 Temperature 101.5 F H 101.5 F H Pulse Rate 94 H Respiratory Rate 16 Blood Pressure 100/56 L Pulse Oximetry 94 Oxygen Flow Rate 01/03/25 18:00 01/03/25 18:00 01/03/25 19:30 Temperature 98.4 F Pulse Rate 90 87 Respiratory Rate 16 17 Blood Pressure 102/55 L 115/64 Pulse Oximetry 95 98 Oxygen Flow Rate 0 Patient admitted to room 205 from ER via stretcher and transferred into bed without assist. He is alert and oriented. Breath sounds CTA with RA sat of 98%. HRR w/telemetry reading of SR. Denied nausea. BT present and abdomen is soft. Denies any dysuria with urination and is voiding good amounts of clear, light yellow urine via urinal. He is able to turn himself in bed and is independent with mobility in room. Bilateral calf SCD's were applied. Is complaining of 9/10 low back pain and has been medicated twice with IV Dilaudid with pain only improving to 8/[address] Jara webexed with this information and requested a larger dose of Dilaudid to help manage his pain; awaiting his reply. He was afebrils upon admission. Fall risk score is moderate and informed he should request assistance when getting out of bed if he is dizzy or lightheaded. Oriented to call light and bed controls.
[2025-01-03] MEDS: KETOROLAC 30 MG/ML VIAL IV (23:56)
[2025-01-04] VITALS (12 sets, daily range): BP systolic 125–142; BP diastolic 65–92; PULSE 72–107; RESP 16–24; TEMP 36.7–39.6; O2SAT 94–100
[2025-01-04] MEDS: SODIUM CHLORIDE 0.9% 1,000 ML 100 ML IV ×2 (05:25→15:42)
[2025-01-04] MEDS: KETOROLAC 30 MG/ML VIAL IV (06:46)
--- NOTE | 2025-01-04 07:18 | PM.PN.1 ---
Subjective Subjective Interval history: Summary: The patient is a 39-year-old male who presents with fever. He was history of bipolar disorder and pancreatitis. The patient was ill last summer and required transient dialysis for RAMOS. The patient came in today with a persistent fever for 4 days. He was seen on December 31 for the symptoms. He was primary complaint is lower back pain. This pain is positional. The patient underwent CT scanning was found to have evidence of a pulmonary infiltrate consistent with pneumonia. He denies cough, or dyspnea. There was no pleuritic chest pain noted. He was quite diaphoretic and clammy. He was also had some anorexia. He denies any urinary symptoms. He also notes some loose stools several days ago, but resolved now. He was on Seroquel and trazodone. Recently his Seroquel was increased and trazodone was started. S: He is feeling better. He did have a fever overnight. He is still having lower back pain. MRI of the LS spine was unremarkable. He feels that antibiotics are working. O: VSS He was so short exam NAD, alert and oriented. Fluent speech. Lungs are clear, normal rate and effort. Heart is regular, no murmur gallop or rub. Abdomen is soft, non distended. Extremities are free of edema. ECG: Intervals [place] Rate: 99 P: 71 RI: 128 QRS: -13 QRSD: 96 T: 41 QT: 386 QTc: 495 Interpretive Statements Normal sinus rhythm Nonspecific ST abnormality Prolonged QT IMAGING: Chest x-ray: IMPRESSION: Right upper lobe consolidation concerning for pneumonia. Follow-up to resolution recommended to exclude underlying mass. Lumbar MRI: FINDINGS: Image quality: Excellent. Alignment and Curvature: There is normal bony alignment. Bone Marrow: Marrow is of normal overall signal. No acute vertebral body compression fractures. Spinal Cord: Conus medullaris terminates at the L1-L2 level. Visualized cord demonstrates normal signal and size. Paraspinous Soft Tissues: No paravertebral masses. T12-L1: No canal stenosis or foraminal stenosis. L1-L2: No canal stenosis or foraminal stenosis. L2-L3: No canal stenosis or foraminal stenosis. L3-L4: No canal stenosis or foraminal stenosis. Mild facet hypertrophy. L4-L5: No canal stenosis or foraminal stenosis. Mild facet hypertrophy. L5-S1: No canal stenosis or foraminal stenosis. Mild facet hypertrophy IMPRESSION: 1. Mild lower lumbar facet arthropathy. 2. Otherwise unremarkable study. No canal stenosis or foraminal stenosis. A/P: 1. Community-acquired pneumonia with 4 days of fever and sepsis, active. 2. Leukopenia secondary to sepsis, active. 3. Bipolar, stable. 4. History of pancreatitis, not active. PLAN: -IV fluids -monitor blood cultures -Continue IV antibiotics, ceftriaxone and doxycycline. -continue usual medications, have considered the possibility of neuroleptic malignant syndrome. -we will consider CT scan of the chest if fever does not improve over the next 12-24 hours. He requires at least 1 more night in the hospital for IV antibiotics. Anticipate 2 nights in the hospital, supports inpatient status. Full resuscitation. Exam Vital Signs (past 8 hours): - 01/04/25 00:28 01/04/25 05:08 Temperature 98.9 F 99.3 F Pulse Rate 72 107 H Respiratory Rate 16 20 Blood Pressure 125/74 127/83 Pulse Oximetry 97 100 Oxygen Flow Rate 0 0 Oxygen Delivery Method Room Air Oxygen Flow Rate 0 Objective Labs 01/04/25 10:50 01/04/25 10:50 Labs: Laboratory Results - last 24 hr 01/03/25 01/03/25 14:08 17:05 WBC 3.8 L RBC 3.92 L Hgb 12.0 L Hct 35.5 L MCV 90.7 MCH 30.5 MCHC 33.7 RDW 17.4 H Plt Count 155 Neut % (Auto) 81.0 H Lymph % (Auto) 11.4 L [place] % (Auto) 7.0 Eos % (Auto) 0.0 L Baso % (Auto) 0.6 Neut # (Auto) 3100 Lymph # (Auto) 400 L [place] # (Auto) 300 Eos # (Auto) 0 Baso # (Auto) 0 PT 12.5 INR 1.1 APTT 31 Sodium 137 Potassium 3.7 Chloride 102 Carbon Dioxide 22 BUN 8 L Creatinine 0.70 Estimated GFR > 60 BUN/Creatinine Ratio 11.4 Glucose 110 H Lactate 0.9 Calcium 9.2 Total Bilirubin 0.6 AST 26 ALT 19 Alkaline Phosphatase 59 Total Creatine Kinase 26 L Troponin I < 0.012 Total Protein 7.7 Albumin 4.1 Globulin 3.6 Albumin/Globulin Ratio 1.1 Lipase 21 L Procalcitonin 0.233 Chlamy pneumoniae PCR Not detected Adenovirus (PCR) Not detected B. pertussis DNA (PCR) Not detected B.parapertussis DNA PCR Not detected Coronavirus OC43 (PCR) Not detected Coronavirus HKU1 (PCR) Not detected Coronavirus 229E (PCR) Not detected SARS-CoV-2 (PCR) Not detected Coronavirus NL63 (PCR) Not detected Human Metapneumovir PCR Not detected Influenza Type A (PCR) Not detected Influenza Type B (PCR) Not detected M. pneumoniae (PCR) Not detected Parainfluenza 1 (PCR) Not detected Parainfluenza 2 (PCR) Not detected Parainfluenza 3 (PCR) Not detected Parainfluenza 4 (PCR) Not detected RSV (PCR) Not detected Entero/Rhino (PCR) Not detected PFSH Medical History Alcohol abuse Bipolar 2 disorder Social History household members: family lives independently: Yes Smoking Status: Never smoker alcohol intake: former Assessment & Plan Time-Based Coding :: [TOTAL MINUTES] spent with patient and on the chart (including review of chart, obtaining history, exam, reviewing outside data, placing orders, documenting exam and treatment plan, and counseling patient) on [DATE]. Quality VTE Deep Vein Thrombosis/Pulmonary Embolism Present on Admission: No
[2025-01-04] MEDS: ACETAMINOPHEN 325 MG TABLET 650 MG PO ×2 (08:16→21:15)
[2025-01-04] MEDS: HEPARIN 5,000 UNIT/ML VIAL 5000 UNIT SUBCUT ×2 (08:16→21:15)
[2025-01-04] MEDS: LIDOCAINE 5% PATCH 1 EACH TOP (08:18)
[2025-01-04] MEDS: cefTRIAXone 2,000 MG in SODIUM CHLORIDE 0.9% 100 ML 200 MG IV (08:18)
[2025-01-04] MEDS: DOXYCYCLINE 100 MG in SODIUM CHLORIDE 0.9% 100 ML IV ×2 (09:22→21:14)
[2025-01-04 11:03] LABS: Add Manual Diff / Slide Review NO; Hematocrit 30.9 % (41-53); Hemoglobin 10.5 g/dL (13.5-17.5); Lymphocytes Absolute Auto 700 /uL (1100-4500); Mean Corpuscular HGB Conc 34.0 % (30-36); Mean Corpuscular Hemoglobin 30.8 PG (26-34); Mean Corpuscular Volume 90.5 fL (80-100); Platelet Count 144 X10^3/uL (150-400)
[2025-01-04] MEDS: CYCLOBENZAPRINE 10 MG TABLET PO ×2 (11:10→19:41)
[2025-01-04 11:11] LABS: Alanine Aminotransferase 13 IU/L (<50); Albumin 3.4 g/dL (3.5-5.0); Albumin Globulin Ratio 1.1 (1.0-2.8); Alkaline Phosphatase 50 U/L (38-126); Blood Urea Nitrogen 5 mg/dL (9-20); Calcium 8.4 mg/dL (8.4-10.2); Carbon Dioxide 22 mmol/L (22-32); Chloride 106 mmol/L (98-107); Estimated Glomerular Filt Rate > 60 mL/min (>60); Globulin 3.2 g/dL (1.7-4.1); Glucose 133 mg/dL (70-99); HEMOLYSIS < 15 (0-50); Potassium 3.8 mmol/L (3.4-5.1); Sodium 137 mmol/L (137-145); Total Protein 6.6 g/dL (6.3-8.2)
--- NOTE | 2025-01-04 11:50 | CM.DANOTE ---
Initial DCP Assessment Note. Review EMR and PT Interview. Met with patient at bedside to discuss discharge needs.PT is alert x 4 sitting up in bed. No acute distress. Independent. Lives with his mother.. Payor:??Coordinated Care PCP: Summary & Plan:?39 male arrived to ED via POV c/o Fever. Admitted INPT. Dx.PNA. Plan: IVF, IV abx, pain control. Blood Cx pending. Discharge to home when improved. Discharge Planning/Care Management CM Discharge Assessment Start: 01/03/25 18:23 Freq: Status: Active Protocol: Document 01/04/25 11:48 (Rec: 01/04/25 11:49 [id number]) Discharge Planning Assessment Assigned Discharge Elidia Logan RN CM [facility]une [facility] Provider Dr. Nj Cameron Insurance Coordinated Care Advance Directives? No History Provided By Patient Prior Living House Arrangements Household Members family Type of Drives own vehicle transporation used prior to admit Independent with ADL Yes 's Is patient alert and Yes oriented? Barriers to No Discharge Discharge Plan Home Transportation Mother Arrangement Referrals Initiated None needed Review Status In Process Please Provide Date 01/04/25 Initial DC Assessment Was Performed Next Review Type Continued Stay Review
--- NOTE | 2025-01-04 15:35 | DI.CT.S_ITS ---
PROCEDURE: CT CHEST WO CON INDICATIONS: fever TECHNIQUE: Noncontrast 5 mm thick sections acquired from the pulmonary apices to the posterior costophrenic angles. 1 mm lung window, 5 mm thick coronal and sagittal and 7 mm axial MIP reformats were then acquired. For radiation dose reduction, the following was used: automated exposure control, adjustment of mA and/or kV according to patient size. COMPARISON: [facility], CR, XR CHEST 1V, 01/03/2025, 14:10. [facility], MR, MR LUMBAR SPINE WO/W CON, 01/03/2025, 15:43. [facility], CT, CT ABDOMEN PELVIS W CON, 12/31/2024, 22:15. FINDINGS: Image quality: Diagnostic. Lower Neck: No enlarged lymph nodes. Thyroid: No thyroid nodules which require sonographic follow up, per consensus guidelines. Axillae: No enlarged lymph nodes. Chest Wall: Unremarkable. Bones: [id number] levoconvex thoracic scoliosis is seen. Lungs and Pleura: Within the right upper lobe posteriorly, there is a moderate patchy infiltrate seen. Trace pleural effusions can be seen, with overlying dependent atelectasis at both lung bases. No pneumothorax. No large pleural effusion. Heart: Heart size is normal. No pericardial effusion. Thoracic Vessels: The aorta and pulmonary arteries demonstrate normal size. Mediastinum and Amanda: No enlarged lymph nodes. Esophagus: No wall thickening. No hiatal hernia. Upper Abdomen: Visualized upper abdomen solid organs and bowel loops appear normal. IMPRESSION: Right upper lobe infiltrate is seen. - Followup chest radiographs are recommended to complete resolution. If this abnormality does not completely resolve on plain film, then a chest CT with contrast would be recommended to evaluate for a potential underlying mass. Trace bilateral pleural effusions are seen with overlying atelectasis. Additional findings: Levoconvex scoliosis Dictated by: Tiago Wilson M.D. on 01/04/2025 at 15:44 Approved by: Tiago Wilson M.D. on 01/04/2025 at 15:46
[2025-01-04] MEDS: IBUPROFEN 400 MG TABLET PO (15:42)
[2025-01-05] VITALS (13 sets, daily range): BP systolic 120–136; BP diastolic 66–90; PULSE 63–104; RESP 16–18; TEMP 36.3–39.7; O2SAT 98–100
[2025-01-05] MEDS: SODIUM CHLORIDE 0.9% 1,000 ML 100 ML IV ×3 (01:08→20:44)
[2025-01-05] MEDS: IBUPROFEN 400 MG TABLET PO (01:53)
[2025-01-05] MEDS: BENZOCAINE/MENTHOL 1 LOZ PKT 1 EACH PO ×2 (03:13→20:47)
[2025-01-05] MEDS: ACETAMINOPHEN 325 MG TABLET 650 MG PO ×2 (03:17→14:54)
[2025-01-05 07:17] LABS: Add Manual Diff / Slide Review NO; Hematocrit 30.4 % (41-53); Hemoglobin 10.2 g/dL (13.5-17.5); Lymphocytes Absolute Auto 800 /uL (1100-4500); Mean Corpuscular HGB Conc 33.6 % (30-36); Mean Corpuscular Hemoglobin 30.5 PG (26-34); Mean Corpuscular Volume 90.5 fL (80-100); Platelet Count 148 X10^3/uL (150-400)
--- NOTE | 2025-01-05 07:22 | P.PN_ITS ---
Subjective Subjective Interval history: Summary: The patient is a 39-year-old male who presents with fever. He was history of bipolar disorder and pancreatitis. The patient was ill last summer and required transient dialysis for RAMOS. The patient came in today with a persistent fever for 4 days. He was seen on December 31 for the symptoms. He was primary complaint is lower back pain. This pain is positional. The patient underwent CT scanning was found to have evidence of a pulmonary infiltrate consistent with pneumonia. He denies cough, or dyspnea. There was no pleuritic chest pain noted. He was quite diaphoretic and clammy. He was also had some anorexia. He denies any urinary symptoms. He also notes some loose stools several days ago, but resolved now. He was on Seroquel and trazodone. Recently his Seroquel was increased and trazodone was started. 01/03: Fevers. 01/04: Feels better, still with intermittent fevers. 01/05: Intermittent fevers, no cough. S: He continues to feel poorly with his episodes of fever. No cough. Persistent lower back pain. Blood cultures remain negative. O: VSS. Not toxic in appearance. NAD, alert and oriented. Fluent speech. Lungs are clear, normal rate and effort. Heart is regular, no murmur gallop or rub. Abdomen is soft, non distended. Extremities are free of edema. ECG: Intervals [place] Rate: 99 P: 71 MA: 128 QRS: -13 QRSD: 96 T: 41 QT: 386 QTc: 495 Interpretive Statements Normal sinus rhythm Nonspecific ST abnormality Prolonged QT IMAGING: Chest x-ray: IMPRESSION: Right upper lobe consolidation concerning for pneumonia. Follow-up to resolution recommended to exclude underlying mass. Lumbar MRI: FINDINGS: Image quality: Excellent. Alignment and Curvature: There is normal bony alignment. Bone Marrow: Marrow is of normal overall signal. No acute vertebral body compression fractures. Spinal Cord: Conus medullaris terminates at the L1-L2 level. Visualized cord demonstrates normal signal and size. Paraspinous Soft Tissues: No paravertebral masses. T12-L1: No canal stenosis or foraminal stenosis. L1-L2: No canal stenosis or foraminal stenosis. L2-L3: No canal stenosis or foraminal stenosis. L3-L4: No canal stenosis or foraminal stenosis. Mild facet hypertrophy. L4-L5: No canal stenosis or foraminal stenosis. Mild facet hypertrophy. L5-S1: No canal stenosis or foraminal stenosis. Mild facet hypertrophy IMPRESSION: 1. Mild lower lumbar facet arthropathy. 2. Otherwise unremarkable study. No canal stenosis or foraminal stenosis. CT Chest: Right upper lobe infiltrate is seen. - Followup chest radiographs are recommended to complete resolution. If this abnormality does not completely resolve on plain film, then a chest CT with contrast would be recommended to evaluate for a potential underlying mass. Trace bilateral pleural effusions are seen with overlying atelectasis. Additional findings: Levoconvex scoliosis A/P: 1. Community-acquired pneumonia with 5 days of fever and sepsis, active. 2. Leukopenia secondary to sepsis, active. 3. Bipolar, stable. 4. History of pancreatitis, not active. PLAN: -Continue IV fluids -monitor blood cultures (remain negative). -Continue IV antibiotics, ceftriaxone and doxycycline. -continue usual medications, have considered the possibility of neuroleptic malignant syndrome. -CT chest reveals only a pneumonia, no fluid collections. He requires at least 1 more night in the hospital for IV antibiotics. Anticipate 2 nights in the hospital, supports inpatient status. Full resuscitation. Exam Vital Signs (past 8 hours): - 01/05/25 00:00 01/05/25 01:53 01/05/25 02:50 Temperature 103.5 F H 103.4 F H 100.6 F H Pulse Rate 104 H Respiratory Rate 17 Blood Pressure 134/75 Pulse Oximetry 100 Oxygen Flow Rate 0 01/05/25 03:00 01/05/25 03:17 01/05/25 04:10 Temperature 100.6 F H 100.6 F H 97.4 F L Pulse Rate 95 H Respiratory Rate 17 Blood Pressure 124/66 Pulse Oximetry 100 Oxygen Flow Rate 0 Oxygen Delivery Method Room Air Oxygen Flow Rate 0 Objective Labs 01/05/25 07:05 01/05/25 07:05 Labs: Laboratory Results - last 24 hr 01/04/25 01/05/25 10:50 07:05 WBC 3.6 L 3.8 L RBC 3.42 L 3.36 L Hgb 10.5 L 10.2 L Hct 30.9 L 30.4 L MCV 90.5 90.5 MCH 30.8 30.5 MCHC 34.0 33.6 RDW 17.3 H 17.8 H Plt Count 144 L 148 L Neut % (Auto) 69.0 65.4 Lymph % (Auto) 19.7 L 19.9 L [place] % (Auto) 10.2 13.5 Eos % (Auto) 0.2 L 0.2 L Baso % (Auto) 0.9 1.0 Neut # (Auto) 2500 2500 Lymph # (Auto) 700 L 800 L [place] # (Auto) 400 500 Eos # (Auto) 0 0 Baso # (Auto) 0 0 Sodium 137 Potassium 3.8 Chloride 106 Carbon Dioxide 22 BUN 5 L Creatinine 0.59 L Estimated GFR > 60 BUN/Creatinine Ratio 8.5 Glucose 133 H Calcium 8.4 Total Bilirubin 0.3 AST 18 ALT 13 Alkaline Phosphatase 50 Total Protein 6.6 Albumin 3.4 L Globulin 3.2 Albumin/Globulin Ratio 1.1 [facility] Medical History Alcohol abuse Bipolar 2 disorder Social History household members: family lives independently: Yes Smoking Status: Never smoker alcohol intake: former Assessment & Plan Time-Based Coding :: [TOTAL MINUTES] spent with patient and on the chart (including review of chart, obtaining history, exam, reviewing outside data, placing orders, documenting exam and treatment plan, and counseling patient) on [DATE]. Quality VTE Deep Vein Thrombosis/Pulmonary Embolism Present on Admission: No
[2025-01-05 07:31] LABS: Blood Urea Nitrogen 4 mg/dL (9-20); Calcium 8.6 mg/dL (8.4-10.2); Carbon Dioxide 21 mmol/L (22-32); Chloride 108 mmol/L (98-107); Estimated Glomerular Filt Rate > 60 mL/min (>60); Glucose 129 mg/dL (70-99); HEMOLYSIS 23 (0-50); Lactate (Lactic Acid) < 0.5 mmol/L (0.7-2.1); Potassium 3.4 mmol/L (3.4-5.1); Sodium 138 mmol/L (137-145)
[2025-01-05] MEDS: HEPARIN 5,000 UNIT/ML VIAL 5000 UNIT SUBCUT ×2 (08:59→20:43)
[2025-01-05] MEDS: cefTRIAXone 2,000 MG in SODIUM CHLORIDE 0.9% 100 ML 200 MG IV (08:59)
[2025-01-05] MEDS: LIDOCAINE 5% PATCH 1 EACH TOP (09:03)
[2025-01-05] MEDS: DOXYCYCLINE 100 MG in SODIUM CHLORIDE 0.9% 100 ML IV ×2 (10:59→20:43)
--- NOTE | 2025-01-05 11:56 | DIET.CONS ---
Dietary Consultation Note Admission Date: 01/03/2025 17:46 Assessment: 39 y M admitted for pneumonia. Dietitian screened for low MNA score. Met with pt at bedside. Reports 80 lb weight loss since this September r/t multiple hospitalizations and pancreatitis. Reports when he return home from hospitalizations was able to resume normal PO intakes, meats/eggs/dairy at 3 meals. Reports currently having good appetite and tolerates his food well. Unable to perform NFPE at this time. Ht: 187.96 cm Wt: 91.172 kg BMI: 25.8 UBW: 108.8 kg on 09/27/24 (-15% weight loss in 3 months, severe), 96.1 kg on 10/28/24 (-5% weight loss in 2 months, non-severe) Last BM: 01/02/25 (01/03/25 19:45) MNA: 10 Jagdeep Score: 22 Diet: 01/03/25 Dinner General (Regular) Diet Diet Modifications: Nutrition Percent Meal Consumed 60 01/04/25 08:28 Labs: RBC 3.36 X10^6/uL (4.5-5.9) L 01/05/25 07:05 Hgb 10.2 g/dL (13.5-17.5) L 01/05/25 07:05 Hct 30.4 % (41-53) L 01/05/25 07:05 Creatinine 0.57 mg/dL (0.66-1.25) L 01/05/25 07:05 Lactate < 0.5 mmol/L (0.7-2.1) L 01/05/25 07:05 Nutrition Diagnosis: Unintentional weight loss r/t alterations in function of GI related organs resulting in inadequate oral intakes aeb -15% weight loss within 3 months (severe) Interventions: Discussed protein options, preventing muscle mass loss, protein needs As pt reports good appetite and reports eating most of meals, discussed Ensure max PRN if unable to finish protein source EER: [id number] kcals (MSJx1.25 vs 23-25 kcals/kg per BMI) 75-90 g protein (.8-1g/kg per adult maintenance) Monitoring/Evaluations: PO intakes, will add ONS if multiple PO intakes <75% Electronically Signed by: Katelyn Engel 01/05/25 11:[address] [address]
[2025-01-05] MEDS: CYCLOBENZAPRINE 10 MG TABLET PO ×2 (12:18→21:52)
[2025-01-05] MEDS: KETOROLAC 30 MG/ML VIAL IV (14:53)
--- NOTE | 2025-01-05 14:56 | DI.ECHO.S_ITS ---
[facility]+ [facility] : : [id number] : [place] : : [id number] : : Phone: [phone] Echocardiogram Report + + :Name: COURT SHARPE Study Date: 01/05/2025 Height: 74 in : :Hospital ReadingLocation: Weight: 201 lb : : Gender: Male BSA: 2.2 m2 : :: 1985 Age: 39 yrs BP: 136/90 mmHg: :Reason For Study: FEVER : :Ordering Physician: DANIEL, : :BARBRA Bahena Performed By: Denver Denton : :Referring: BARBRA SANCHEZ : + + Interpretation Summary The left ventricle is mildly dilated. The ejection fraction is estimated to be 50-55%. Normal diastolic function. The right ventricle is normal in size and function. No significant valvular abnormalities. Pulmonary artery pressures cannot be estimated because of the lack of a measurable TR jet velocity but the IVC suggests a CVP of around 3 mmHg. There is a trivial pericardial effusion noted. Procedure: A two-dimensional transthoracic echocardiogram with color flow and Doppler was performed. A contrast injection of Definity was performed to improve assessment for apical thrombus. There is no prior echocardiogram noted for this patient. The study quality was technically adequate. The patient was in normal sinus rhythm during the exam. Left Ventricle: The left ventricle is mildly dilated. Left ventricular wall thickness is mildly increased. There is no ventricular septal defect visualized. The ejection fraction is estimated to be 50-55%. There are no focal wall motion abnormalities. Normal diastolic function. Right Ventricle: The right ventricle is normal in size and function. Atria: The left atrial size is normal. Right atrial size is normal. There is no Doppler evidence for an interatrial shunt. Mitral Valve: The mitral valve leaflets appear mildly thickened. The mitral valve leaflets are slightly calcified. There is no vegetation seen on the mitral valve. There is trace mitral regurgitation. Aortic Valve: The aortic valve is trileaflet. The aortic valve opens well. There is no aortic valvular vegetation. There is no aortic valve stenosis. No aortic regurgitation is present. Tricuspid Valve: The tricuspid valve leaflets are thin and pliable. There is no tricuspid valve vegetation. No tricuspid regurgitation. Pulmonary artery pressures cannot be estimated because of the lack of a measurable TR jet velocity but the IVC suggests a CVP of around 3 mmHg. Pulmonic Valve: The pulmonic valve is not well seen, but is grossly normal. There is no obvious vegetation on the pulmonic valve. There is no pulmonic valvular regurgitation. Great Vessels: The aortic root is mildly dilated. The dimensions of the ascending aorta are normal. The pulmonary artery is normal size. The IVC is of normal diameter and collapses greater than 50% with a sniff. This suggests a low right atrial pressure of 3 mm Hg. Pericardium/ Pleura There is a trivial pericardial effusion noted. There is no pleural effusion. MMode/2D Measurements & Calculations LVIDd: 6.1 cm LVOT diam: 2.4 cm LVIDs: 4.3 cm Ao root diam: 4.0 cm FS: 29.2 % asc Aorta Diam: 3.0 cm EPSS: 1.2 cm IVSd: 0.99 cm LVPWd: 1.2 cm LV bowie. diameter/BSA (cm/m^2): 2.8 LV sys. diameter/BSA (cm/m^2): 2.0 LA A2 area: 21.6 cm2 RA long axis: 5.8 cm LA A4 area: 24.0 cm2 RA area: 18.4 cm2 LA length (vol): 6.1 cm RA vol: 49.6 ml LA vol: 72.2 ml RA : 22.8 ml/m2 LA vol index: 33.1 ml/m2 IVC diam: 2.3 cm RVD1 (basal): 3.7 cm RVD2 (mid): 2.9 cm Doppler Measurements & Calculations Ao V2 max: 174.2 cm/sec LVOT Max Frankie: 127.2 cm/sec Ao V2 mean: 130.1 cm/sec LV V1 max P.5 mmHg Ao max P.1 mmHg LV V1 VTI: 19.4 cm Ao mean P.4 mmHg NANCY(I,D): 3.4 cm2 Ao V2 VTI: 25.3 cm NANCY(V,D): 3.2 cm2 sev ratio: 0.77 NANCY indexed to BSA (cm^2/m^2): 1.6 MV E max frankie: 61.5 cm/sec PA V2 max: 125.3 cm/sec MV A max frankie: 74.1 cm/sec PA V2 mean: 93.0 cm/sec MV E/A: 0.83 PA mean P.9 mmHg Med Peak E' Frankie: 6.4 cm/sec PA pr(Accel): 41.3 mmHg E/E' med: 9.6 Lat Peak E' Frankie: 11.1 cm/sec E/E' lat: 5.5 E/e' average: 7.6 MV dec time: 0.14 sec SV(LVOT): 85.8 ml Reading Physician:05:34 PM
[2025-01-05 15:47] LABS: Creatine Kinase < 20 U/L (55-170)
--- NOTE | 2025-01-05 16:57 | PC.NURSE ---
Pt resting at intervals T/O day Temp varies from 99 - 102.5. Med w/ tylenol,w/T then 99.2 States that pain in back is 10/10 Med w/ Dilaudid IVP, with some releif Voiding per urinal QS clear yellow urine. IVF NS infusing at 100cc/hr w/o incidence Call light w/in reach, pt calls appropriately for needs. Continue w/plan of care.
[2025-01-05] MEDS: OXYMETAZOLINE NASAL SPRAY 30 ML 2 SPRAYS NASAL (20:46)
[2025-01-06] VITALS (8 sets, daily range): BP systolic 123–133; BP diastolic 80–87; PULSE 69–83; RESP 16–20; TEMP 36.6–37.6; O2SAT 97–99
[2025-01-06] MEDS: BENZOCAINE/MENTHOL 1 LOZ PKT 1 EACH PO (00:45)
[2025-01-06] MEDS: ACETAMINOPHEN 325 MG TABLET 650 MG PO ×2 (04:07→20:16)
--- NOTE | 2025-01-06 07:48 | P.PN_ITS ---
Subjective Subjective Date Patient Seen: 01/06/25 Interval history: Chief complaint: Fever cough shortness for breath secondary to pneumonia unresponsive to antibiotics History of present illness: 01/03: The patient is a 39-year-old male who presents with fever. He was history of bipolar disorder and pancreatitis. The patient was ill last summer and required transient dialysis for RAMOS. The patient came in today with a persistent fever for 4 days. He was seen on December 31 for the symptoms. He was primary complaint is lower back pain. This pain is positional. The patient underwent CT scanning was found to have evidence of a pulmonary infiltrate consistent with pneumonia. He denies cough, or dyspnea. There was no pleuritic chest pain noted. He was quite diaphoretic and clammy. He was also had some anorexia. He denies any urinary symptoms. He also notes some loose stools several days ago, but resolved now. He was on Seroquel and trazodone. Recently his Seroquel was increased and trazodone was started. 01/03: Fevers. 01/04: Feels better, still with intermittent fevers. 01/05: Intermittent fevers, no cough. He continues to feel poorly with his episodes of fever. No cough. Persistent lower back pain. Blood cultures remain negative. 01/06: Still feeling weak still having chills rigors and sweats Review of systems: No chest pain palpitations No diarrhea No paresthesia or paresis Physical exam: T-max 102.6? vital signs stable Ill-appearing young male HEENT unremarkable Lungs diminished breath sounds Abdomen nontender Extremities no edema Skin no viral exanthems No nuchal rigidity Assessment and plan: 1. Community-acquired pneumonia with 5 days of fever and sepsis, active. * Echocardiogram negative for findings of infective endocarditis * Suspect viral cause of pneumonia * Antibiotics continued 2. Leukopenia secondary to sepsis, active. * Maybe stigmata of viral infection 3. Bipolar, stable. * Monitor for signs 4. History of pancreatitis, not active. * Avoid high fat food DVT prophylaxis: * Subcutaneous heparin Code status: * Full code blue Disposition: * He requires at least 1 more night in the hospital for IV antibiotics. Time based billing: * 35 minutes were involved in the evaluation of this patient including [id number] evaluation physical examination review of records discussion with care management team Exam Vital Signs (past 8 hours): - 01/06/25 00:00 01/06/25 04:00 01/06/25 04:07 Temperature 98.2 F 99.6 F 99.6 F Pulse Rate 74 83 Respiratory Rate 18 20 Blood Pressure 133/87 126/80 Pulse Oximetry 99 97 Oxygen Flow Rate 0 0 01/06/25 05:00 01/06/25 05:40 Temperature 98.5 F 98.5 F Pulse Rate Respiratory Rate Blood Pressure Pulse Oximetry Oxygen Flow Rate Oxygen Delivery Method Room Air Oxygen Flow Rate 0 Objective Labs 01/05/25 07:05 01/05/25 07:05 Labs: Laboratory Results - last 24 hr 01/05/25 15:20 Total Creatine Kinase < 20 L PFSH Medical History Alcohol abuse Bipolar 2 disorder Social History household members: family lives independently: Yes Smoking Status: Never smoker alcohol intake: former Assessment & Plan Time-Based Coding :: [TOTAL MINUTES] spent with patient and on the chart (including review of chart, obtaining history, exam, reviewing outside data, placing orders, documenting exam and treatment plan, and counseling patient) on [DATE]. Quality VTE Deep Vein Thrombosis/Pulmonary Embolism Present on Admission: No
[2025-01-06] MEDS: cefTRIAXone 2,000 MG in SODIUM CHLORIDE 0.9% 100 ML 200 MG IV (09:26)
[2025-01-06] MEDS: HEPARIN 5,000 UNIT/ML VIAL 5000 UNIT SUBCUT ×2 (11:39→20:15)
[2025-01-06] MEDS: DOXYCYCLINE 100 MG in SODIUM CHLORIDE 0.9% 100 ML IV ×2 (12:45→20:15)
[2025-01-06] MEDS: SODIUM CHLORIDE 0.9% FLUSH 10 ML IV ×2 (14:56→20:17)
--- NOTE | 2025-01-06 15:54 | CM.DPC ---
DCP Cont: Per MD, pt with ongoing higher fevers of 105-102 but white count remains lower and potential pt has viral pneumonia. Currently remains on IV abx and not yet stable for discharge. DON Wh[place]
--- NOTE | 2025-01-06 17:26 | PC.NURSE ---
Pt A/O Up ind in room. Afibrile this shift. States he is feeling better., however continues w/ some back discomfort. Med w/ dilaudid IVP w/ good relief. Pt had shower, ambulated in hallway w/o incidence, New IV site established Call light w/in reach, pt calls appropriately for needs. Continue w/plan of care.
[2025-01-06] MEDS: CYCLOBENZAPRINE 10 MG TABLET PO (20:16)
[2025-01-07] VITALS: TEMP 36.7
[2025-01-07 04:00] VITALS: TEMP 36.5
[2025-01-07 08:00] VITALS: BP 137/92; PULSE 71; RESP 16; TEMP 36.7; O2SAT 98
[2025-01-07] MEDS: cefTRIAXone 2,000 MG in SODIUM CHLORIDE 0.9% 100 ML 200 MG IV (09:00)
[2025-01-07] MEDS: HEPARIN 5,000 UNIT/ML VIAL 5000 UNIT SUBCUT (09:50)
[2025-01-07] MEDS: SODIUM CHLORIDE 0.9% FLUSH 10 ML IV (09:51)
[2025-01-07] MEDS: DOXYCYCLINE 100 MG in SODIUM CHLORIDE 0.9% 100 ML IV (09:51)
--- NOTE | 2025-01-07 10:34 | P.DS_ITS ---
History of Present Illness History of Present Illness Date Patient Seen: 01/07/25 Chief complaint: 105.4 fever not feeling good Narrative: Chief complaint: Fever cough shortness for breath secondary to pneumonia unresponsive to antibiotics History of present illness: 01/03: The patient is a 39-year-old male who presents with fever. He was history of bipolar disorder and pancreatitis. The patient was ill last summer and required transient dialysis for RAMOS. The patient came in today with a persistent fever for 4 days. He was seen on December 31 for the symptoms. He was primary complaint is lower back pain. This pain is positional. The patient underwent CT scanning was found to have evidence of a pulmonary infiltrate consistent with pneumonia. He denies cough, or dyspnea. There was no pleuritic chest pain noted. He was quite diaphoretic and clammy. He was also had some anorexia. He denies any urinary symptoms. He also notes some loose stools several days ago, but resolved now. He was on Seroquel and trazodone. Recently his Seroquel was increased and trazodone was started. 01/03: Fevers. 01/04: Feels better, still with intermittent fevers. 01/05: Intermittent fevers, no cough. He continues to feel poorly with his episodes of fever. No cough. Persistent lower back pain. Blood cultures remain negative. 01/06: Still feeling weak still having chills rigors and sweats 01/07: No more fevers feeling great having some back pain Review of systems: No chest pain palpitations No diarrhea No paresthesia or paresis Physical exam: T-max 102.6? vital signs stable Ill-appearing young male HEENT unremarkable Lungs diminished breath sounds Abdomen nontender Paraspinous muscle tenderness on examination Extremities no edema Skin no viral exanthems No nuchal rigidity Assessment and plan: 1. Community-acquired pneumonia with 5 days of fever and sepsis, active. * Echocardiogram negative for findings of infective endocarditis * Suspect viral cause of pneumonia * Antibiotics continued 2. Leukopenia secondary to sepsis, active. * Maybe stigmata of viral infection 3. Bipolar, stable. * Monitor for signs 4. History of pancreatitis, not active. * Avoid high fat food DVT prophylaxis: * Subcutaneous heparin Code status: * Full code blue Disposition: * Discharge to home on 5 days of antibiotic Flexeril ibuprofen and Lidoderm patches Time based billing: * 35 minutes were involved in the evaluation of this patient including [id number] evaluation physical examination review of records discussion with care management team Discharge Providers Provider Date of admission: 01/03/25 17:46 Discharge Date: 01/07/25 Primary care physician: Nj Cameron MD Discharge provider: Daryn Aguilar MD Exam Vital Signs (past 8 hours): - 01/07/25 04:00 01/07/25 08:00 Temperature 97.7 F 98.1 F Pulse Rate 71 Respiratory Rate 16 Blood Pressure 137/92 H Pulse Oximetry 98 Oxygen Delivery Method Room Air Oxygen Flow Rate 0 Objective Labs 01/05/25 07:05 01/05/25 07:05 [facility] Medical History Alcohol abuse Bipolar 2 disorder Social History household members: family lives independently: Yes Smoking Status: Never smoker alcohol intake: former Discharge Plan Discharge Plan Patient Disposition: Home Discharge orders & Medications Prescriptions: New cyclobenzaprine 10 mg Tablet 10 mg PO Q8HR PRN (Reason: Spasms) Qty: 60 0RF lidocaine 5 % Adhesive Patch,Medicated 1 patch topical DAILY Qty: 30 0RF ibuprofen 400 mg Tablet 400 mg PO Q8HR PRN (Reason: Pain or fever) Qty: 100 0RF cefdinir 300 mg capsule 300 mg PO BID Qty: 10 0RF doxycycline hyclate 100 mg capsule 100 mg PO BID Qty: 10 0RF Continued trazodone 50 mg tablet 50 mg PO ONCE PM PRN (Reason: insomnia) quetiapine 25 mg tablet 100 mg PO .qhs lorazepam 0.5 mg tablet 1 mg PO BID PRN (Reason: anxiety) propranolol 20 mg tablet 20 mg PO .qday PRN (Reason: anxiety) oxycodone 5 mg tablet 5 mg PO Q6H PRN (Reason: pain) Discontinued quetiapine 25 mg tablet 25 mg PO BEDTIME Qty: 30 0RF Follow up/Referrals: Nj Cameron MD [Primary Care Provider, Internal Medicine] Visit Report/Discharge Packet Stand Alone Forms: Patient Portal/API, Stroke Signs & Symptoms Discharge Data Primary Care Provider: Nj Cameron Quality VTE Deep Vein Thrombosis/Pulmonary Embolism Present on Admission: No
--- NOTE | 2025-01-07 12:11 | PC.NURSE ---
Patient is A&OX4, VSS, afebrile on RA. He denies any feeling of fever or chills, sweats or SOB. BRIAN BAARJAS. MD at bedside evaluating patient and clears him for medically stable to discharge today. He acknowledges understanding of medications and if symptoms return. He completes both doses of IV abx this a.m. prior to discharge and RN removes IV and reviews prescriptions. He is escorted to hospital entrance with all of his belongings by RN at noon today for discharge with ride he had called for in private vehicle.
--- NOTE | 2025-01-07 14:45 | CM.DPC ---
DCP Discharge Home Per MD, pt improved and medically stable to d/c home today with outpt f/u and po meds and no identified barriers to discharge. SW met briefly bedside with pt while RN was providing discharge instructions and he confirms he is agreeable with d/c home today and no d/c needs at this time. DON Whittington
== END 2025-01-07 12:00 | disposition home or self-care (01) | DRG 720 ==
LOC: ED 14:22 → AC 17:47
PROVIDERS: Internal Medicine; Admitting Provider Hospitalist; Emergency Provider Physician Assistant; PCP Student in an Organized Health Care Education/Training Program; Referring Provider Emergency Medicine; Visit Provider Hospitalist
DX: A41.9 Sepsis, unspecified organism (principal); J12.9 Viral pneumonia, unspecified; M54.50 Low back pain, unspecified; F31.9 Bipolar disorder, unspecified; G47.00 Insomnia, unspecified; F41.9 Anxiety disorder, unspecified; Z87.19 Personal history of other diseases of the digestive system
CPT/HCPCS: 36415; 71045; 71250; 72158; 74177; 80048; 80053; 80320; 81003; 82550; 83605; 83690; 84145; 84484; 85025; 85610; 85730; 87040; 87633; 87637; 93005; 93306; 96361; 96365; 96375; 99284; A9579; J0696; J1171; J1644; J1885; J2405; J7030; J7050; Q9967